=== PATIENT | male | born 1975 | race African-American/Black ===

== ENCOUNTER 2017-09-26 20:07 | Inpatient (IN) | payer OTHER ==
[~2017-09-26] VITALS: Ht 188 cm; Wt 130.7 kg
[2017-09-26] MEDS ORDERED: SODIUM CHLORIDE 0.9% 1000ML 1,000 ML IV STA ×2 (20:18→22:01)
[2017-09-26] MEDS ORDERED: KETOROLAC TROMETHAMINE 30 MG/ML VIAL IV STA (20:18)
[2017-09-26] MEDS: MoRPHine SULFATE 4 MG/ML 1 ML CARP\\VIAL IV PRN ×2 (20:36→22:19)
--- NOTE | 2017-09-26 20:57 | DIAGNOSTIC IMAGING REPORT ---
CHEST ONE VIEW PORTABLE CLINICAL HISTORY: Abdominal pain. COMPARISON STUDY: No previous studies for comparison. FINDINGS: Postoperative findings within the right shoulder are incidentally noted. Lung volumes are mildly diminished. There is probable scoliosis of the thoracolumbar spine. No pneumothorax or pleural effusion is noted. There is no evidence for pulmonary edema. There is borderline cardiomegaly. IMPRESSION: No acute cardiopulmonary findings. Electronically signed by: Logan Rocha M.D. 09/26/2017 8:56 PM Dictated Date/Time: 09/26/2017 8:55 PM
[2017-09-26 21:15] LABS: BASO % 0.1 %; BASO ABS # 0.01 K/uL (0-0.2); HEMATOCRIT 46.1 % (42-52); HEMOGLOBIN 16.6 g/dL (14.0-18.0); IG# 0.05 K/uL (0.00-0.02); LYMPH % 13.2 %; LYMPH ABS # 0.93 K/uL (1.2-3.4); MEAN CELL VOLUME 92.9 fL (80-100); MEAN CORPUSCULAR HEMOGLOBIN 33.5 pg (25-34); MEAN PLATELET VOLUME 11.9 fL (7.4-10.4); MONO % 6.9 %; MONO ABS # 0.49 K/uL (0.11-0.59); NEUT % 79.1 %; NEUT ABS # 5.59 K/uL (1.4-6.5); PLATELET COUNT 178 K/uL (130-400); RED CELL DISTRIBUTION WIDTH CV 13.6 % (11.5-14.5); RED CELL DISTRIBUTION WIDTH SD 45.7 fL (36.4-46.3); WHITE BLOOD COUNT 7.07 K/uL (4.8-10.8)
[2017-09-26 21:31] LABS: INR 0.9 (0.9-1.1); PTT PATIENT 26.9 SECONDS (21.0-31.0)
--- NOTE | 2017-09-26 22:10 | DIAGNOSTIC IMAGING REPORT ---
CT OF THE ABDOMEN AND PELVIS WITHOUT CONTRAST CLINICAL HISTORY: Abdominal pain, nausea and vomiting. COMPARISON STUDY: No previous studies for comparison. TECHNIQUE: Axial images of the abdomen and pelvis were obtained without IV contrast. Images were reviewed in the axial, sagittal, and coronal planes. A dose lowering technique was utilized adhering to the principles of ALARA. FINDINGS: Scoliosis of the thoracolumbar spine is noted. There is severe fatty infiltration of the liver. Unenhanced images of the spleen, adrenal glands and pancreas as well as the kidneys are normal. There is no hydronephrosis. No renal, ureteral or bladder calculi are present. There is no hydronephrosis. There is moderate distention of the bladder. There is colonic diverticulosis without evidence for acute diverticulitis. The appendix is normal. There is no peripancreatic or pericholecystic infiltration. There is mild distention of the bladder. Apparent rectal wall thickening is likely due to underdistention. There are no suspicious osseous lesions. IMPRESSION: 1. No acute process within the abdomen or pelvis on unenhanced exam. 2. No urinary calculi or hydronephrosis. 3. Colonic diverticulosis without evidence for acute diverticulitis. 4. Severe fatty infiltration of the liver. 5. Mild bladder distention. 6. Apparent rectal wall thickening which is likely due to underdistention. Electronically signed by: Logan Rocha M.D. 09/26/2017 10:09 PM Dictated Date/Time: 09/26/2017 10:02 PM
[2017-09-26] MEDS ORDERED: FAMOTIDINE 20MG/5ML IV PUSH IV STA (22:20)
[2017-09-26] MEDS ORDERED: ATOR10TA82 PO (22:46)
[2017-09-26] MEDS ORDERED: IBUP1CAP30 PO (22:46)
[2017-09-26] MEDS ORDERED: TPRSR/50 PO (22:46)
[2017-09-27] VITALS (18 sets, daily range): BP systolic 110–161; BP diastolic 71–100; PULSE 85–106; TEMP 36.7–37; O2SAT 96–100; BMI 34.5; BMI 34.6
[2017-09-27] MEDS ORDERED: PROMETHAZINE HCL INJ 12.5 MG in SODIUM CHLORIDE 0.9% 50ML 50 ML IV STA (00:12)
[2017-09-27] MEDS ORDERED: ONDANSETRON INJ 2 MG/ML 2 ML VIAL IV STA (00:12)
[2017-09-27] MEDS ORDERED: NovoLIN-R INSULIN PER UNIT CHARGE IV STA ×2 (01:02→01:49)
[2017-09-27] MEDS ORDERED: SODIUM CHLORIDE 0.9% 500ML 500 ML IV STA (01:02)
[2017-09-27] MEDS ORDERED: LABETALOL HCL IV 5 MG/ML 20ML IV STA (01:28)
[2017-09-27 01:34] LABS: ALBUMIN 4.6 gm/dl (3.4-5.0); ALKALINE PHOSPHATASE 127 U/L (45-117); ALT/SGPT 44 U/L (12-78); AST/SGOT 23 U/L (15-37); BLOOD UREA NITROGEN 9 mg/dl (7-18); CARBON DIOXIDE 5 mmol/L (21-32); CREATININE 1.81 mg/dl (0.60-1.40); LIPASE 541 U/L (73-393); POTASSIUM 6.2 mmol/L (3.5-5.1); SODIUM 132 mmol/L (136-145)
[2017-09-27 01:37] LABS: GLUCOSE 439 mg/dl (70-99)
[2017-09-27] MEDS ORDERED: LORAZEPAM 2 MG/ML 1 ML VIAL IV STA (01:45)
[2017-09-27] MEDS ORDERED: SODIUM CHLORIDE 0.9% 1000ML 1,000 ML IV STA (01:49)
[2017-09-27] MEDS ORDERED: NITROGLYCERIN 2% OINTMENT 30GM TUBE EXT ONE (01:55)
[2017-09-27] MEDS: SOD CHLOR 14.6% 2.5MEQ/ML 38.5 MEQ, SODIUM BICARBONATE 8.4% INJ 100 MEQ in STERILE WATE... IV SCH ×2 (02:12→09:42)
[2017-09-27] MEDS ORDERED: GLUCOSE 10 TABS/TUBE PO PRN (02:15)
[2017-09-27] MEDS ORDERED: DEXTROSE 50% 50 ML SYR IV PRN (02:15)
[2017-09-27] MEDS ORDERED: GLUCAGON FOR INJ 1 MG VIAL SQ PRN (02:15)
[2017-09-27] MEDS ORDERED: ALUMINUM/MAGNESIUM/SIMETH (MAALOX MAX) 30 ML UDC PO PRN (02:15)
[2017-09-27] MEDS ORDERED: MAGNESIUM HYDROXIDE SUSP 30 ML UDC PO PRN (02:15)
[2017-09-27] MEDS ORDERED: GLUCOSE 40% GEL 15 GM TUBE PO PRN (02:15)
[2017-09-27] MEDS ORDERED: ONDANSETRON 8MG OD TAB PO PRN (02:15)
--- NOTE | 2017-09-27 02:28 | History and Physical ---
History & Physical Date & Time of Service: Sep 27, 2017 at 02:27 Chief Complaint: abd pain Primary Care Physician: No Doctor, Assigned History of Present Illness Source: patient, hospital records The patient is a 42-year-old male who presents to the emergency department with intractable nausea and vomiting, lethargy and mild confusion. He denies any specific signs of illness, and is unsure of how he has gotten to his present state, other than a known history of severe reflux and he reports he has a sore throat now from vomiting. He denies any questionable food intake recently. Has not been able to take his medications for 3 days due to these symptoms. Past Medical/Surgical History Medical Problems: (1) Hyperglycemia due to type 2 diabetes mellitus (2) Hypertension (3) Intractable nausea and vomiting Family History FATHER- DM Social History Smoking Status: Never Smoker Smokeless Tobacco Use: No Alcohol Use: none Drug Use: none Immunizations History of Influenza Vaccine: Unknown History of Tetanus Vaccine?: Unknown History of Pneumococcal: Unknown History of Hepatitis B Vaccine: Unknown Allergies Coded Allergies: No Known Allergies (Unverified , 09/26/17) Home Medications Scheduled Atorvastatin (Lipitor), 10 MG PO DAILY Metoprolol Succinate (Metoprolol Succinate ER), 50 MG PO DAILY Scheduled PRN Ibuprofen-Diphenhydramine Hcl (Advil Pm), 1 CAP PO UD PRN for Sleep Review of Systems The patient denies chest pain, palpitations, shortness of breath, dyspnea on exertion, cough, lower extremity swelling, diarrhea , constipation, abdominal pain, pelvic pain, blood in urine or stool, dysuria, urinary frequency or urgency, memory loss, loss of consciousness, rash, abnormal bruising or bleeding, imbalance, focal weakness, numbness or tingling in arms or legs, back or neck pain, or night sweats. The review of systems is otherwise negative other than for that already noted above, and at least 10 systems have been reviewed. Physical Exam Vital Signs Date Time Temp Pulse Resp B/P (MAP) Pulse Ox O2 Delivery O2 Flow Rate FiO2 09/27/17 02:15 101 22 119/84 98 Room Air 09/27/17 02:05 101 28 130/92 98 Room Air 09/27/17 01:09 121 09/27/17 01:04 118 20 153/108 97 Room Air 09/26/17 23:15 114 18 152/103 98 09/26/17 21:38 116 18 159/101 100 Room Air 09/26/17 20:42 118 20 152/104 98 Room Air 09/26/17 20:11 37.1 122 22 174/112 98 Room Air The patient is awake, alert and oriented 3 after initial treatment in the ED, well developed and well nourished, normocephalic and atraumatic, lying in bed and in no acute distress. HEENT--PERRL, EOMI, mucous membranes and oropharynx dry. Neck--supple. No JVD. No bruits. Thyroid normal, trachea midline, no adenopathy. Heart--normal S1 and S2. No murmurs, rubs or gallops. Lungs--clear bilaterally, no respiratory distress, no accessory muscle use. Abdomen--normal bowel sounds and soft. Nontender. Nondistended, no hernias or masses, no organomegaly. Extremities--no cyanosis or clubbing. No edema. There are good distal pulses b/ l. Dermatologic--normal skin turgor, normal color, no abnormal lymph nodes, no rash. Neurologic--cranial nerves II through XII grossly intact. Rheumatologic--normal range of motion. Psychiatric--cooperative. Diagnostics Laboratory Results Results Past 24 Hours Test 09/26/17 20:58 09/27/17 00:43 09/27/17 01:00 09/27/17 01:30 Range/Units White Blood Count 7.07 4.8-10.8 K/uL Red Blood Count 4.96 4.7-6.1 M/uL Hemoglobin 16.6 14.0-18.0 g/dL Hematocrit 46.1 42-52 % Mean Corpuscular Volume 92.9 80-100 fL Mean Corpuscular Hemoglobin 33.5 25-34 pg Mean Corpuscular Hemoglobin Concent 36.0 32-36 g/dl Platelet Count 178 130-400 K/uL Mean Platelet Volume 11.9 7.4-10.4 fL Neutrophils (%) (Auto) 79.1 % Lymphocytes (%) (Auto) 13.2 % Monocytes (%) (Auto) 6.9 % Eosinophils (%) (Auto) 0.0 % Basophils (%) (Auto) 0.1 % Neutrophils # (Auto) 5.59 1.4-6.5 K/uL Lymphocytes # (Auto) 0.93 1.2-3.4 K/uL Monocytes # (Auto) 0.49 0.11-0.59 K/uL Eosinophils # (Auto) 0.00 0-0.5 K/uL Basophils # (Auto) 0.01 0-0.2 K/uL RDW Standard Deviation 45.7 36.4-46.3 fL RDW Coefficient of Variation 13.6 11.5-14.5 % Immature Granulocyte % (Auto) 0.7 % Immature Granulocyte # (Auto) 0.05 0.00-0.02 K/uL Prothrombin Time 9.9 9.0-12.0 SECONDS Prothromb Time International Ratio 0.9 0.9-1.1 Activated Partial Thromboplast Time 26.9 21.0-31.0 SECONDS Partial Thromboplastin Ratio 1.0 Sodium Level 132 136-145 mmol/L Potassium Level 6.2 3.5-5.1 mmol/L Chloride Level 102 98-107 mmol/L Carbon Dioxide Level 5 21-32 mmol/L Anion Gap 25.0 3-11 mmol/L Blood Urea Nitrogen 9 7-18 mg/dl Creatinine 1.81 0.60-1.40 mg/dl Est Creatinine Clear Calc Drug Dose 74.4 ml/min Estimated GFR () 52.3 Estimated GFR (Non- 45.1 BUN/Creatinine Ratio 5.0 10-20 Random Glucose 439 70-99 mg/dl Calcium Level 10.0 8.5-10.1 mg/dl Magnesium Level 2.4 1.8-2.4 mg/dl Total Bilirubin 0.5 0.2-1 mg/dl Aspartate Amino Transf (AST/SGOT) 23 15-37 U/L Alanine Aminotransferase (ALT/SGPT) 44 12-78 U/L Alkaline Phosphatase 127 45-117 U/L Troponin I < 0.015 0-0.045 ng/ml Total Protein 9.0 6.4-8.2 gm/dl Albumin 4.6 3.4-5.0 gm/dl Globulin 4.4 2.5-4.0 gm/dl Albumin/Globulin Ratio 1.0 0.9-2 Lipase 541 73-393 U/L Beta-Hydroxybutyric Acid 0.2-2.81 mg/dL Chemistry Specimen Hemolysis Bedside Glucose 432 70-99 mg/dl Urine Color YELLOW Urine Appearance CLEAR CLEAR Urine pH 5.0 4.5-7.5 Urine Specific [place] 1.027 1.000-1.030 Urine Protein 2+ NEG Urine Glucose (UA) 3+ NEG Urine Ketones 4+ NEG Urine Occult Blood 2+ NEG Urine Nitrite NEG NEG Urine Bilirubin NEG NEG Urine Urobilinogen NEG NEG Urine Leukocyte Esterase NEG NEG Urine WBC (Auto) 1-5 0-5 /hpf Urine RBC (Auto) 0-4 0-4 /hpf Urine Hyaline Casts (Auto) 5-10 0-5 /lpf Urine Epithelial Cells (Auto) 10-20 0-5 /lpf Urine Bacteria (Auto) NEG NEG Urine Opiates Screen POS NEG Urine Methadone, Qualitative NEG NEG Urine Barbiturates NEG NEG Urine Phencyclidine (PCP) Level NEG NEG Ur Amphetamine/Methamphetamine NEG NEG MDMA (Ecstasy) Screen NEG NEG Urine Benzodiazepines Screen NEG NEG Urine Cocaine Metabolite NEG NEG Urine Marijuana (THC) NEG NEG Test 09/27/17 01:48 09/27/17 02:20 Range/Units Bedside Glucose 420 70-99 mg/dl Diagnostic Radiology Patient Name: GUILLERMO PETERSON Unit Number: [id number] Dictated: 09/26/172054 Transcribed: 09/26/172054 BARBIE Printed Date/Time: [~ rep prt dt]/[~ rep prt tm] [~ rep ct labl] - [~ rep ct ivnm] [facility] [place] [address] Dictated: 09/26/172054 Transcribed: 09/26/172054 BARBIE Printed Date/Time: [~ rep prt dt]/[~ rep prt tm] [~ rep ct labl] - [~ rep ct ivnm] CHEST ONE VIEW PORTABLE CLINICAL HISTORY: Abdominal pain. COMPARISON STUDY: No previous studies for comparison. FINDINGS: Postoperative findings within the right shoulder are incidentally noted. Lung volumes are mildly diminished. There is probable scoliosis of the thoracolumbar spine. No pneumothorax or pleural effusion is noted. There is no evidence for pulmonary edema. There is borderline cardiomegaly. IMPRESSION: No acute cardiopulmonary findings. Electronically signed by: Logan Rocha M.D. 09/26/2017 8:56 PM Dictated Date/Time: 09/26/2017 8:55 PM The status of this report is Signed. Draft = Not yet reviewed or approved by Radiologist. Signed = Reviewed and approved by Radiologist. <AttendingPhy></AttendingPhy> <FamilyPhy>No Doctor, Assigned</FamilyPhy> < PrimaryPhy>No Doctor, Assigned</PrimaryPhy> <UnitNumber>[id number]</UnitNumber> <VisitNumber>[id number]</VisitNumber> <PatientName>GUILLERMO PETERSON</PatientName> < DateOfBirth>1975</DateOfBirth> <Location>[facility]</Location> <ServiceDate>08/14</ServiceDate> <MNE>ESINDI</MNE> <OrderingPhy>Naeem Lerma M.D.</ OrderingPhy> <OrderingPhyMNE>f rep ord dr cuevas</OrderingPhyMNE> <DictatingPhyMNE> f rep dict dr cuevas</DictatingPhyMNE> <CCListMNE>f rep ct mne</CCListMNE> < AdmittingPhyMNE>f pt admit dr cuevas</AdmittingPhyMNE> <AttendingPhyMNE>f pt attend dr cuevas</AttendingPhyMNE> <ConsultingPhyMNE>f pt consult dr cuevas</ConsultingPhyMNE> <FamilyPhyMNE>f pt fam dr cuevas</FamilyPhyMNE> <OtherPhyMNE>f pt other dr cuevas</OtherPhyMNE> < PrimaryPhyMNE>f pt prim care dr cuevas</PrimaryPhyMNE> <ReferringPhyMNE>f pt referring dr cuevas</ReferringPhyMNE> Patient Name: GUILLERMO PETERSON Unit Number: [id number] Dictated: 09/26/172201 Transcribed: 09/26/172201 BARBIE Printed Date/Time: [~ rep prt dt]/[~ rep prt tm] [~ rep ct labl] - [~ rep ct ivnm] [facility] [place] [address] Dictated: 09/26/172201 Transcribed: 09/26/172201 BARBIE Printed Date/Time: [~ rep prt dt]/[~ rep prt tm] [~ rep ct labl] - [~ rep ct ivnm] [~ rep ct add3]] CT OF THE ABDOMEN AND PELVIS WITHOUT CONTRAST CLINICAL HISTORY: Abdominal pain, nausea and vomiting. COMPARISON STUDY: No previous studies for comparison. TECHNIQUE: Axial images of the abdomen and pelvis were obtained without IV contrast. Images were reviewed in the axial, sagittal, and coronal planes. A dose lowering technique was utilized adhering to the principles of ALARA. FINDINGS: Scoliosis of the thoracolumbar spine is noted. There is severe fatty infiltration of the liver. Unenhanced images of the spleen, adrenal glands and pancreas as well as the kidneys are normal. There is no hydronephrosis. No renal, ureteral or bladder calculi are present. There is no hydronephrosis. There is moderate distention of the bladder. There is colonic diverticulosis without evidence for acute diverticulitis. The appendix is normal. There is no peripancreatic or pericholecystic infiltration. There is mild distention of the bladder. Apparent rectal wall thickening is likely due to underdistention. There are no suspicious osseous lesions. IMPRESSION: 1. No acute process within the abdomen or pelvis on unenhanced exam. 2. No urinary calculi or hydronephrosis. 3. Colonic diverticulosis without evidence for acute diverticulitis. 4. Severe fatty infiltration of the liver. 5. Mild bladder distention. 6. Apparent rectal wall thickening which is likely due to underdistention. Electronically signed by: Logan Rocha M.D. 09/26/2017 10:09 PM Dictated Date/Time: 09/26/2017 10:02 PM The status of this report is Signed. Draft = Not yet reviewed or approved by Radiologist. Signed = Reviewed and approved by Radiologist. <AttendingPhy></AttendingPhy> <FamilyPhy>No Doctor, Assigned</FamilyPhy> < PrimaryPhy>No Doctor, Assigned</PrimaryPhy> <UnitNumber>[id number]</UnitNumber> <VisitNumber>[id number]</VisitNumber> <PatientName>GUILLERMO PETERSON</PatientName> < DateOfBirth>1975</DateOfBirth> <Location>[facility]</Location> <ServiceDate>08/14</ServiceDate> <MNE>ESINDI</MNE> <OrderingPhy>Naeem Lerma M.D.</ OrderingPhy> <OrderingPhyMNE>f rep ord dr cuevas</OrderingPhyMNE> <DictatingPhyMNE> f rep dict dr cuevas</DictatingPhyMNE> <CCListMNE>f rep ct faith</CCListMNE> < AdmittingPhyMNE>f pt admit dr cuevas</AdmittingPhyMNE> <AttendingPhyMNE>f pt attend dr cuevas</AttendingPhyMNE> <ConsultingPhyMNE>f pt consult dr cuevas</ConsultingPhyMNE> <FamilyPhyMNE>f pt fam dr cuevas</FamilyPhyMNE> <OtherPhyMNE>f pt other dr cuevas</OtherPhyMNE> < PrimaryPhyMNE>f pt prim care dr cuevas</PrimaryPhyMNE> <ReferringPhyMNE>f pt referring dr cuevas</ReferringPhyMNE> EKG EKG shows normal sinus rhythm at 99 bpm, mildly prolonged QT, no acute ST-T changes. 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 His heart rate was very variable while he is in the emergency department ranging anywhere from the 90s to the 130s. For increased heart rate he is given labetalol 20 mg IV 1 by the ED staff. He received a total of 2-1/2 L of normal saline, which was then changed to a bicarbonate drip laboratories were able to be obtained and showed a bicarb of 5. The patient was initially intermittently disoriented, but by the time he left the emergency department was able to communicate reasonably well and reported feeling significantly improved except for abdominal cramping, for which he was given Levsin 0.4 mg sublingual. New onset diabetes mellitus-- Blood sugar was 439 upon admission. Hemoglobin A1c has been ordered. He was given regular insulin 10 mg IV 2, in efforts to improve blood sugar and treat hyperkalemia of 6.2. Patient was started on Lantus insulin 20 units subcu twice daily. Placed on Accu-Cheks before meals and at bedtime with NovoLog coverage for scale. Hyperlipidemia-- Continue Lipitor 10 mg p.o. daily Check a fasting lipid panel. Hypertension/hyperkalemia/acute kidney injury-- Continue metoprolol succinate 50 mg p.o. daily. Since he had not been able to take his medication for a few days, he was elevated, and was given labetalol 20 mg IV 1 by the ED. Lopressor 5 mg IV every 4 hours as needed systolic blood pressure above 160. Continue to hydrate with bicarb drip as noted above. Check basic metabolic panel at 4 hour intervals. Abdominal cramping-- CT abdomen and pelvis is negative. This may be due to the hyperglycemia itself and/or gastroparesis. Placed on Levsinex 0.4 mg sublingual every 4 hours as needed. Advanced Directives Existing Advance Directive: No Existing Living Will: No Existing Power of Material Manager: No Resuscitation Status VTE Prophylaxis Will order VTE Prophylaxis: Yes Social Service Consult None Apply Note Total Time: Critical Care 30 - 74 minutes
[2017-09-27] MEDS ORDERED: PROCHLORPERAZINE INJ 10 MG in SYRINGE 8 ML IV PRN (02:30)
[2017-09-27] MEDS: HYOSCYAMINE SULFATE 0.125 MG SL TAB SL PRN (02:52)
[2017-09-27] MEDS ORDERED: INSULIN GLARGINE SOLOSTAR 100 UNITS/ML 3 ML PEN SC STA (03:22)
[2017-09-27] MEDS ORDERED: INFLUENZA ADMINISTRATION CHARGE ONE (04:15)
[2017-09-27] MEDS ORDERED: INFLUENZA VIRUS QUAD VACCINE 0.5 ML SYR IM. ONE (04:15)
[2017-09-27] MEDS ORDERED: METOPROLOL TARTRATE 1 MG/ML VIAL IV ONE (05:23)
[2017-09-27] MEDS: ACETAMINOPHEN 325 MG TAB PO PRN (06:22)
[2017-09-27] MEDS ORDERED: INSULIN ASPART 100 UNITS/ML 3 ML PEN SC SCH (06:45)
[2017-09-27 07:20] LABS: HEMOGLOBIN A1C 12.5 % (4.5-5.6)
[2017-09-27] MEDS: HEPARIN SOD 5000 UNIT/0.5 ML CARP SQ SCH ×2 (07:52→20:18)
[2017-09-27] MEDS: METOPROLOL TARTRATE 1 MG/ML VIAL IV. SCH ×5 (07:55→23:33)
[2017-09-27] MEDS: NITROGLYCERIN 2% OINTMENT 30GM TUBE EXT SCH ×3 (08:12→20:20)
[2017-09-27] MEDS ORDERED: MODERATE STRESS LEVEL ONE (08:15)
[2017-09-27] MEDS ORDERED: DKA GOAL RANGE 150-250 mg/dl 1 EA ONE (08:15)
[2017-09-27] MEDS ORDERED: PHARMACY GLYCEMIC MGMT CONSULT PRN (08:15)
[2017-09-27] MEDS ORDERED: PERFLUTREN LIPID MICROSPHERE (DEFINITY) IV ONE (08:55)
[2017-09-27] MEDS ORDERED: INSULIN GLARGINE SOLOSTAR 100 UNITS/ML 3 ML PEN SC SCH (09:00)
[2017-09-27] MEDS ORDERED: INSULIN IV INFUSION PROTOCOL SCH (09:00)
[2017-09-27] MEDS: METOPROLOL SUCC 50MG EXT REL TAB PO SCH (09:06)
[2017-09-27] MEDS: ATORVASTATIN 10 MG TAB PO SCH (09:06)
[2017-09-27] MEDS: ASPIRIN 81 MG ECTAB PO SCH (09:06)
[2017-09-27] MEDS ORDERED: SODIUM CHLORIDE 0.45% 1000ML 1,000 ML IV SCH (10:30)
[2017-09-27] MEDS ORDERED: NovoLIN R BOLUS FROM BAG IV ONE (10:30)
[2017-09-27] MEDS: INSULIN REGULAR 250 UNITS in SODIUM CHLORIDE 0.9% 250ML 250 ML IV SCH (10:33)
[2017-09-27 10:42] LABS: BLOOD UREA NITROGEN 9 mg/dl (7-18); CALCIUM 8.8 mg/dl (8.5-10.1); CARBON DIOXIDE < 5 mmol/L (21-32); CHOLESTEROL 324 mg/dl (0-200); CKMB 2.6 ng/ml (0.5-3.6); CREATININE 1.93 mg/dl (0.60-1.40); GLUCOSE 416 mg/dl (70-99)
[2017-09-27 10:53] LABS: SODIUM 133 mmol/L (136-145)
[2017-09-27] MEDS ORDERED: PANTOprazole INJ 40 MG in SYRINGE 0 ML IV SCH (11:00)
[2017-09-27] MEDS: INSULIN ASPART 100 UNITS/ML 3 ML PEN SC SCH ×3 (11:57→20:11)
[2017-09-27 12:59] LABS: PHOSPHORUS 2.8 mg/dl (2.5-4.9)
[2017-09-27] MEDS ORDERED: CHLORDIAZEPOXIDE 25 MG CAP PO SCH (13:00)
[2017-09-27] MEDS ORDERED: LORAZEPAM 1 MG TAB PO PRN (13:00)
--- NOTE | 2017-09-27 13:25 | Progress Note ---
Subjective Date of Service: Sep 27, 2017. Subjective Pt evaluation today including: conversation w/ patient, conversation w/ family (), physical exam, lab review, review of inpatient medication list Pain: mild abdominal pain PO Intake: poor appetite Voiding: no voiding problems patient presented over night with complaints of 3 weeks of vague abdominal pain , nausea and vomiting prior to this he admitted to some polyuria and polydipsia last time he saw a physician was 10 months ago he has a family history of type II diabetes he says he is feeling a little better compared to time of admission reviewed labs, bicarb still 5, Cr is 1.9, VBG with pH of 7.26, CBC from yesterday was normal discussed with pharmacy, will start insulin drip, change fluids to half normal saline told patient about diagnosis of diabetes, unsure if this is type II or I Hb A1c is 12.5 vitals stable Review of Systems Constitutional: + weakness, + fatigue Abdomen: + pain, + nausea, + vomiting Male : + problem reported (recent h/o polyuria and polydipsia) All Other Systems: Reviewed and Negative Medications Current Inpatient Medications Medications (Trade) Dose Ordered Sig/Ike Route Start Time Stop Time Status Last Admin Dose Admin Heparin Sodium (Porcine) (Heparin Sq 5000 Unit/0.5ml) 5,000 unit Q12 SQ 09/27/17 09:00 10/27/17 08:59 09/27/17 07:52 5,000 UNIT Acetaminophen (Tylenol Tab) 650 mg Q4H PRN PO 09/27/17 02:15 10/27/17 02:14 09/27/17 06:22 650 MG Al Hydrox/Mg Hydrox/Simethicone (Maalox Max Susp) 15 ml Q4H PRN PO 09/27/17 02:15 10/27/17 02:14 09/27/17 06:21 15 ML Magnesium Hydroxide (Milk Of Magnesia Susp) 30 ml Q12H PRN PO 09/27/17 02:15 10/27/17 02:14 Nitroglycerin (Nitroglycerin 2% Oint) 1 inch Q6H EXT 09/27/17 08:00 10/27/17 07:59 09/27/17 08:12 1 INCH Aspirin (Ecotrin Tab) 81 mg QAM PO 09/27/17 09:00 10/27/17 08:59 09/27/17 09:06 81 MG Atorvastatin Calcium (Lipitor Tab) 10 mg DAILY PO 09/27/17 09:00 10/27/17 08:59 09/27/17 09:06 10 MG Metoprolol Succinate (Toprol Xl Tab) 50 mg QAM PO 09/27/17 09:00 10/27/17 08:59 09/27/17 09:06 50 MG Ondansetron HCl (Zofran Odt) 8 mg Q6H PRN PO 09/27/17 02:15 10/27/17 02:14 09/27/17 08:17 8 MG Insulin Aspart (novoLOG ASPART) SLIDING SCALE If C... ACHS SC 09/27/17 06:45 10/27/17 06:59 Future Hold 09/27/17 07:52 9 UNITS Glucose (Glucose 40% Gel) 15-30 GRAMS 15 GRAMS... UD PRN PO 09/27/17 02:15 10/27/17 02:14 Glucose (Glucose Chew Tab) 4-8 Tablets 4 Tabl... UD PRN PO 09/27/17 02:15 10/27/17 02:14 Dextrose (Dextrose 50% 50ML Syringe) 25-50ML OF 50% DW IV FOR... UD PRN IV 09/27/17 02:15 10/27/17 02:14 Glucagon (Glucagon Inj) 1 mg UD PRN SQ 09/27/17 02:15 10/27/17 02:14 Pantoprazole Sodium 40 mg/ Syringe 10 ml @ 5 mls/min DAILY@11 IV 09/27/17 11:00 09/30/17 11:01 09/27/17 11:46 5 MLS/MIN Prochlorperazine Edisylate 10 mg/ Syringe 10 ml @ 5 mls/min Q6H PRN IV 09/27/17 02:30 10/27/17 02:29 Hyoscyamine Sulfate (Levsin Tab) 0.125 mg Q4H PRN SL 09/27/17 02:45 10/27/17 02:44 09/27/17 02:52 0.125 MG Metoprolol Tartrate (Lopressor Iv) 5 mg Q4 IV. 09/27/17 08:00 5/3/18 07:59 09/27/17 11:42 5 MG Insulin Glargine (Lantus Solostar Pen) 20 units QAM AK 09/28/17 09:00 10/27/17 08:59 Future Hold Insulin Aspart (novoLOG ASPART) SLIDING SCALE PCHS AK 09/27/17 12:00 10/27/17 11:59 Insulin Human Regular (Insulin IV Infusion Protocol) 1 ea Q15M N/A 09/27/17 09:00 10/27/17 08:59 Miscellaneous Information (Consult Glycemic Management Pharmacy) 1 ea UD PRN N/A 09/27/17 08:15 10/27/17 08:14 Insulin Human Regular 250 units/ Sodium Chloride 252.5 ml @ 0 mls/hr Q24H IV 09/27/17 10:30 10/27/17 10:29 09/27/17 10:33 3.1 MLS/HR Sodium Chloride 1,000 ml @ 150 mls/hr Q6H40M IV 09/27/17 10:30 10/27/17 10:29 Objective Vital Signs Date Time Temp Pulse Resp B/P (MAP) Pulse Ox O2 Delivery O2 Flow Rate FiO2 09/27/17 12:09 36.7 18 120/85 (97) 99 Room Air 09/27/17 12:05 99 Room Air 09/27/17 11:42 91 125/80 09/27/17 11:41 91 18 125/80 (95) 99 09/27/17 10:00 96 21 09/27/17 09:01 95 19 149/90 (109) 98 Room Air 09/27/17 09:00 96 21 99 09/27/17 08:31 98 26 161/100 (120) 99 09/27/17 08:15 99 Room Air 09/27/17 08:01 36.7 98 20 146/95 (112) 100 Room Air 09/27/17 07:55 102 146/90 09/27/17 07:31 101 29 146/90 (108) 98 09/27/17 07:01 105 29 144/93 (110) 97 09/27/17 07:00 104 20 98 09/27/17 05:41 107 147/69 09/27/17 04:00 36.7 106 22 150/96 (114) 98 Room Air 09/27/17 04:00 96 Room Air 09/27/17 03:00 36.8 104 20 148/94 97 Room Air 09/27/17 02:48 104 20 122/88 98 09/27/17 02:42 79 20 138/88 97 Room Air 09/27/17 02:31 104 20 105/86 99 Room Air 09/27/17 02:15 101 22 119/84 98 Room Air 09/27/17 02:05 101 28 130/92 98 Room Air 09/27/17 01:09 121 09/27/17 01:04 118 20 153/108 97 Room Air 09/26/17 23:15 114 18 152/103 98 09/26/17 21:38 116 18 159/101 100 Room Air 09/26/17 20:42 118 20 152/104 98 Room Air 09/26/17 20:11 37.1 122 22 174/112 98 Room Air Physical Exam General Appearance: no apparent distress, + obese Eyes: normal inspection, EOMI, sclerae normal ENT: normal ENT inspection, hearing grossly normal, pharynx normal, + pertinent finding (acetone breath) Neck: supple, no adenopathy, no JVD, trachea midline Respiratory/Chest: chest non-tender, lungs clear, normal breath sounds, no respiratory distress, no accessory muscle use Cardiovascular: regular rate, rhythm, no edema, no gallop, no JVD, no murmur Abdomen: normal bowel sounds, non tender, soft, no organomegaly Extremities: normal range of motion, non-tender, normal inspection, no pedal edema, no calf tenderness, pelvis stable Neurologic/Psychiatric: recycle coordinator II-XII nml as tested, no motor/sensory deficits, alert, normal mood/affect, oriented x 3 Skin: normal color, warm/dry, no rash Laboratory Results Last 24 Hours Test 09/26/17 20:58 09/27/17 00:43 09/27/17 01:00 09/27/17 01:30 White Blood Count 7.07 K/uL Red Blood Count 4.96 M/uL Hemoglobin 16.6 g/dL Hematocrit 46.1 % Mean Corpuscular Volume 92.9 fL Mean Corpuscular Hemoglobin 33.5 pg Mean Corpuscular Hemoglobin Concent 36.0 g/dl Platelet Count 178 K/uL Mean Platelet Volume 11.9 fL Neutrophils (%) (Auto) 79.1 % Lymphocytes (%) (Auto) 13.2 % Monocytes (%) (Auto) 6.9 % Eosinophils (%) (Auto) 0.0 % Basophils (%) (Auto) 0.1 % Neutrophils # (Auto) 5.59 K/uL Lymphocytes # (Auto) 0.93 K/uL Monocytes # (Auto) 0.49 K/uL Eosinophils # (Auto) 0.00 K/uL Basophils # (Auto) 0.01 K/uL RDW Standard Deviation 45.7 fL RDW Coefficient of Variation 13.6 % Immature Granulocyte % (Auto) 0.7 % Immature Granulocyte # (Auto) 0.05 K/uL Prothrombin Time 9.9 SECONDS Prothromb Time International Ratio 0.9 Activated Partial Thromboplast Time 26.9 SECONDS Partial Thromboplastin Ratio 1.0 Estimated Average Glucose 312 mg/dl Hemoglobin A1c 12.5 % Sodium Level 132 mmol/L Potassium Level 6.2 mmol/L Chloride Level 102 mmol/L Carbon Dioxide Level 5 mmol/L Anion Gap 25.0 mmol/L Blood Urea Nitrogen 9 mg/dl Creatinine 1.81 mg/dl Est Creatinine Clear Calc Drug Dose 74.4 ml/min Estimated GFR () 52.3 Estimated GFR (Non- 45.1 BUN/Creatinine Ratio 5.0 Random Glucose 439 mg/dl Calcium Level 10.0 mg/dl Magnesium Level 2.4 mg/dl Total Bilirubin 0.5 mg/dl Aspartate Amino Transf (AST/SGOT) 23 U/L Alanine Aminotransferase (ALT/SGPT) 44 U/L Alkaline Phosphatase 127 U/L Troponin I < 0.015 ng/ml Total Protein 9.0 gm/dl Albumin 4.6 gm/dl Globulin 4.4 gm/dl Albumin/Globulin Ratio 1.0 Lipase 541 U/L Beta-Hydroxybutyric Acid mg/dL Chemistry Specimen Hemolysis Bedside Glucose 432 mg/dl Urine Color YELLOW Urine Appearance CLEAR Urine pH 5.0 Urine Specific [place] 1.027 Urine Protein 2+ Urine Glucose (UA) 3+ Urine Ketones 4+ Urine Occult Blood 2+ Urine Nitrite NEG Urine Bilirubin NEG Urine Urobilinogen NEG Urine Leukocyte Esterase NEG Urine WBC (Auto) 1-5 /hpf Urine RBC (Auto) 0-4 /hpf Urine Hyaline Casts (Auto) 5-10 /lpf Urine Epithelial Cells (Auto) 10-20 /lpf Urine Bacteria (Auto) NEG Urine Opiates Screen POS Urine Methadone, Qualitative NEG Urine Barbiturates NEG Urine Phencyclidine (PCP) Level NEG Ur Amphetamine/Methamphetamine NEG MDMA (Ecstasy) Screen NEG Urine Benzodiazepines Screen NEG Urine Cocaine Metabolite NEG Urine Marijuana (THC) NEG Test 09/27/17 01:48 09/27/17 05:33 09/27/17 09:52 09/27/17 12:12 Bedside Glucose 420 mg/dl 376 mg/dl Sodium Level 133 mmol/L Potassium Level mmol/L Chloride Level 102 mmol/L Carbon Dioxide Level < 5 mmol/L Anion Gap 28.0 mmol/L Blood Urea Nitrogen 9 mg/dl Creatinine 1.93 mg/dl Est Creatinine Clear Calc Drug Dose 69.2 ml/min Estimated GFR () 48.4 Estimated GFR (Non- 41.7 BUN/Creatinine Ratio 4.9 Random Glucose 416 mg/dl Calcium Level 8.8 mg/dl Total Creatine Kinase U/L Creatine Kinase MB 2.6 ng/ml Creatine Kinase MB Ratio Troponin I < 0.015 ng/ml Triglycerides Level 1228 mg/dl Cholesterol Level 324 mg/dl HDL Cholesterol 39 mg/dl LDL Cholesterol, Calculated mg/dl VLDL Cholesterol, Calculated mg/dl Cholesterol/HDL Ratio 8.3 Beta-Hydroxybutyric Acid mg/dL Venous Blood pH 7.26 Phosphorus Level 2.8 mg/dl Magnesium Level mg/dl Test 09/27/17 12:16 Assessment and Plan 42 yo male with new onset DM, presenting with DKA - DKA: sugars in 400's, HCO3 low at 5 with anion gap of 28 will start insulin infusion with pharmacy managing will need to transition to basal and bolus once sugars controlled and gap closed follow BMP and Mag/phos q4 keep in ICU today continue 1/2 NSS, will add D5 once sugars < 250 K down to 3.8 from 6, due to insulin infusion will give 20mEq PO BID, 20mEq IV, change fluids to LR - Hypertriglyceridemia due to elevated sugars, will repeat once sugars controlled - RAMIREZ: Cr up to 1.9, likely prerenal azotemia follow UO, follow Cr, electrolytes stable - Alcohol abuse: drinks several bottles of vodka a week last drink was 3 days ago, no tremors or signs of withdrawal will place on Librium protocol Ativan PRN - DVT prophylaxis: heparin SC
[2017-09-27] MEDS: THIAMINE HCL 100 MG TAB PO SCH (13:47)
[2017-09-27] MEDS: CHLORDIAZEPOXIDE 50MG 1ST DOSE PO SCH ×2 (13:50→20:17)
--- NOTE | 2017-09-27 14:15 | ECHOCARDIOGRAM REPORT ---
*NOTICE TO RECEIVING [employer] This information is strictly Confidential and protected under [place] law. [place] law prohibits you from making any further disclosure of this information unless further disclosure is expressly permitted by the written consent of the person to whom it pertains or is authorized by law. A general authorization for the release of medical or other information is not sufficient for this purpose. Hospital accepts no responsibility if the information is made available to any other person, INCLUDING THE PATIENT. Interpretation Summary * Name: GUILLERMO PETERSON Study Date: 09/27/2017 08:35 AM BP: 146/90 mmHg * Patient Location: [facility] HR: 102 * : 1975 (M/d/yyyy) Gender: Male Height: 74 in * Age: 42 yrs Ethnicity: AA Weight: 273 lb * Ordering Physician: Landon Richardson * Referring Physician: Self, Referred * Performed By: Sravani Davis RDCS * * Reason For Study: Abnormal EKG, ST elevation in V2 * BSA: 2.5 m2 * -- Conclusions -- * Left ventricular systolic function is normal. * No regional wall motion abnormalities noted. * Ejection Fraction = 60-65%. * There is borderline concentric left ventricular hypertrophy. * Grade I diastolic dysfunction, (abnormal relaxation pattern). * There is mild mitral regurgitation. Procedure Details * A complete two-dimensional transthoracic echocardiogram was performed (2D, M-mode, Doppler and color flow Doppler). * A contrast injection of Definity was performed to improve assessment of LV function. * Contrast was injected into an intravenous site in the right arm. * One vial of Definity ultrasound contrast was diluted in normal saline to a total volume of 10 ml. A total of '2' ml of solution was administered during imaging. * Lot # [id number] of Definity utilized for procedure. * Expiration date OCT 13. * The attending nurse who injected the contrast agent was Heriberto Bose RN. Left Ventricle * The left ventricle is normal in size. * There is borderline concentric left ventricular hypertrophy. * Ejection Fraction = 60-65%. * Left ventricular systolic function is normal. * No regional wall motion abnormalities noted. Right Ventricle * The right ventricle is normal size. * The right ventricular systolic function is normal as assessed by tricuspid annular plane systolic excursion (TAPSE) (normal >1.5 cm). Atria * The left atrium is mildly dilated. * Right atrium not well visualized. * No ASD detected; PFO is not assessed. Mitral Valve * The mitral valve anatomy is normal. * There is no mitral valve stenosis. * There is mild mitral regurgitation. Tricuspid Valve * The tricuspid valve anatomy is normal. * There is no tricuspid stenosis. * Significant tricuspid regurgitation is absent. Aortic Valve * The aortic valve is normal in structure and function. * No hemodynamically significant valvular aortic stenosis. * No aortic regurgitation is present. Pulmonic Valve * The pulmonary valve is not well seen, but the Doppler examination is normal without significant regurgitation or stenosis. Great Vessels * Borderline aortic root dilatation. * The pulmonary is not well visualized. Pericardium/Pleural * There is no pericardial effusion. Great Vessels * Normal inferior vena cava size and collapsability with sniff indicates a normal right atrial pressure of 3 mmHg Left Ventricular Diastolic Function * Grade I diastolic dysfunction, (abnormal relaxation pattern). MMode 2D Measurements and Calculations IVSd 0.98 cm LVIDd 4.6 cm LVIDs 3.2 cm LVPWd 0.95 cm IVS/LVPW 1.0 FS 30.9 % EDV(Teich) 97.8 ml ESV(Teich) 40.5 ml EF(Teich) 58.5 % EDV(cubed) 97.9 ml ESV(cubed) 32.3 ml EF(cubed) 67.0 % LV mass(C)d 151.7 grams LV mass(C)dI 61.2 grams/m\S\2 SV(Teich) 57.2 ml SI(Teich) 23.1 ml/m\S\2 SV(cubed) 65.5 ml SI(cubed) 26.4 ml/m\S\2 Ao root diam 3.4 cm Ao root area 9.1 cm\S\2 ACS 2.4 cm LA dimension 3.3 cm asc Aorta Diam 3.6 cm LA/Ao 0.98 LVOT diam 2.2 cm LVOT area 3.7 cm\S\2 LVAd ap4 19.7 cm\S\2 LVLd ap4 6.4 cm EDV(MOD-sp4) 52.5 ml EDV(sp4-el) 51.4 ml LVAs ap4 11.9 cm\S\2 LVLs ap4 5.7 cm ESV(MOD-sp4) 22.2 ml ESV(sp4-el) 21.2 ml EF(MOD-sp4) 57.7 % EF(sp4-el) 58.7 % LVAd ap2 20.3 cm\S\2 LVLd ap2 6.1 cm EDV(MOD-sp2) 54.3 ml EDV(sp2-el) 57.8 ml LVAs ap2 12.6 cm\S\2 LVLs ap2 6.1 cm ESV(MOD-sp2) 22.6 ml ESV(sp2-el) 22.4 ml EF(MOD-sp2) 58.3 % EF(sp2-el) 61.3 % LVLd %diff -5.92 % EDV(MOD-bp) 53.6 ml LVLs %diff 5.9 % ESV(MOD-bp) 23.1 ml EF(MOD-bp) 56.9 % SV(MOD-sp4) 30.3 ml SI(MOD-sp4) 12.2 ml/m\S\2 SV(MOD-sp2) 31.6 ml SI(MOD-sp2) 12.8 ml/m\S\2 SV(MOD-bp) 30.5 ml SI(MOD-bp) 12.3 ml/m\S\2 SV(sp4-el) 30.2 ml SI(sp4-el) 12.2 ml/m\S\2 SV(sp2-el) 35.5 ml SI(sp2-el) 14.3 ml/m\S\2 Doppler Measurements and Calculations MV E max daija 54.8 cm/sec MV A max daija 71.3 cm/sec MV E/A 0.77 MV dec time 0.17 sec Ao V2 max 111.3 cm/sec Ao max PG 5.0 mmHg Ao max PG (full) 1.4 mmHg DYLAN(V,A) 3.1 cm\S\2 DYLAN(V,D) 3.1 cm\S\2 LV V1 max PG 3.5 mmHg LV V1 max 94.1 cm/sec PA V2 max 99.1 cm/sec PA max PG 3.9 mmHg PA acc slope 704.7 cm/sec\S\2 PA acc time 0.09 sec PI end-d daija 122.2 cm/sec PA pr(Accel) 37.8 mmHg
[2017-09-27 14:22] LABS: POTASSIUM 3.8 mmol/L (3.5-5.1)
--- NOTE | 2017-09-27 14:34 | EMERGENCY ROOM VISIT NOTE ---
History Report prepared by Louisa: Golden Bonner Under the Supervision of: Dr. Naeem Lerma M.D. First contact with patient: 20:12 Chief Complaint: ABDOMINAL PAIN Stated Complaint: abd pain History of Present Illness The patient is a 42 year old male who presents to the Emergency Room with complaints of constant abdominal pain beginning two days ago. The patient states that his abdominal pain began two days ago and is located in the center of his abdomen. He notes that he also has a headache, mild chest pain, has been vomiting, and has not been able to eat since his symptoms began. He denies any diarrhea and fever. He reports that he has a history of hypertension but does not have a history of any abdominal surgeries. He rates his pain as an 8/10. Per nurse, the patient was given 4 mg of Zofran PO at [facility] and 4 mg of Zofran IV in the parking lot. The patient presents by EMS. He admits he has not been able to take his normal medications for the last few days. Source of History: patient, nursing staff Onset: two days ago Position: abdomen Symptom Intensity: 8/10 Timing: constant Associated Symptoms: + headache, + chest pain (mild), + vomiting, No fevers , No diarrhea Note: The patient states that he has not been able to eat since his symptoms began. Review of Systems See HPI for pertinent positives & negatives. A total of 10 systems reviewed and were otherwise negative. Past Medical & Surgical Medical Problems: (1) Hyperglycemia due to type 2 diabetes mellitus (2) Hypertension (3) Intractable nausea and vomiting Family History No pertinent family history stated. Social History Marital Status: Housing Status: lives with family Occupation Status: employed Current/Historical Medications Scheduled Atorvastatin (Lipitor), 10 MG PO DAILY Metoprolol Succinate (Metoprolol Succinate ER), 50 MG PO DAILY Scheduled PRN Ibuprofen-Diphenhydramine Hcl (Advil Pm), 1 CAP PO UD PRN for Sleep Allergies Coded Allergies: No Known Allergies (Unverified , 09/26/17) Physical Exam Vital Signs Date Time Temp Pulse Resp B/P (MAP) Pulse Ox O2 Delivery O2 Flow Rate FiO2 09/27/17 02:15 101 22 119/84 98 Room Air 09/27/17 02:05 101 28 130/92 98 Room Air 09/27/17 01:09 121 09/27/17 01:04 118 20 153/108 97 Room Air 09/26/17 23:15 114 18 152/103 98 09/26/17 21:38 116 18 159/101 100 Room Air 09/26/17 20:42 118 20 152/104 98 Room Air 09/26/17 20:11 37.1 122 22 174/112 98 Room Air Physical Exam GENERAL: Patient is in mild distress, actively vomiting. HEENT: No acute trauma, normocephalic atraumatic, mucous membranes dry, no nasal congestion, no scleral icterus. NECK: No stridor, no adenopathy, no meningismus, trachea is midline. LUNGS: Clear to auscultation bilaterally, no wheeze, no rhonchi, breath sounds equal. HEART: Tachycardic with a subtle systolic murmur, regular rhythm. ABDOMEN: Soft, diffusely tender but mostly tender near the epigastrium, bowel sounds positive, no hernias, no peritonitis. EXTREMITIES: No cyanosis or edema, full range of motion of all the joints without pain or difficulty, no signs for acute trauma. NEUROLOGIC: Oriented x 3, no acute motor or sensory deficits, no focal weakness. SKIN: No rash, no jaundice, mild diaphoresis. Medical Decision & Procedures ER Provider Diagnostic Interpretation: Radiology results as stated below per my review and radiologist interpretation: CHEST ONE VIEW PORTABLE FINDINGS: Postoperative findings within the right shoulder are incidentally noted. Lung volumes are mildly diminished. There is probable scoliosis of the thoracolumbar spine. No pneumothorax or pleural effusion is noted. There is no evidence for pulmonary edema. There is borderline cardiomegaly. IMPRESSION: No acute cardiopulmonary findings. CT OF THE ABDOMEN AND PELVIS WITHOUT CONTRAST FINDINGS: Scoliosis of the thoracolumbar spine is noted. There is severe fatty infiltration of the liver. Unenhanced images of the spleen, adrenal glands and pancreas as well as the kidneys are normal. There is no hydronephrosis. No renal, ureteral or bladder calculi are present. There is no hydronephrosis. There is moderate distention of the bladder. There is colonic diverticulosis without evidence for acute diverticulitis. The appendix is normal. There is no peripancreatic or pericholecystic infiltration. There is mild distention of the bladder. Apparent rectal wall thickening is likely due to underdistention. There are no suspicious osseous lesions. IMPRESSION: 1. No acute process within the abdomen or pelvis on unenhanced exam. 2. No urinary calculi or hydronephrosis. 3. Colonic diverticulosis without evidence for acute diverticulitis. 4. Severe fatty infiltration of the liver. 5. Mild bladder distention. 6. Apparent rectal wall thickening which is likely due to underdistention. Electronically signed by: Logan Rocha M.D. 09/26/2017 10:09 PM Electronically signed by: Logan Rocha M.D. 09/26/2017 8:56 PM Laboratory Results 09/26/17 20:58 Red Blood Count 4.96, Mean Corpuscular Volume 92.9, Mean Corpuscular Hemoglobin 33.5, Mean Corpuscular Hemoglobin Concent 36.0, Mean Platelet Volume 11.9, Neutrophils (%) (Auto) 79.1, Lymphocytes (%) (Auto) 13.2, Monocytes (%) (Auto) 6.9, Eosinophils (%) (Auto) 0.0, Basophils (%) (Auto) 0.1, Neutrophils # (Auto) 5.59, Lymphocytes # (Auto) 0.93, Monocytes # (Auto) 0.49, Eosinophils # (Auto) 0.00, Basophils # (Auto) 0.01 Test 09/26/17 20:58 09/27/17 00:43 09/27/17 01:30 White Blood Count 7.07 K/uL (4.8-10.8) Red Blood Count 4.96 M/uL (4.7-6.1) Hemoglobin 16.6 g/dL (14.0-18.0) Hematocrit 46.1 % (42-52) Mean Corpuscular Volume 92.9 fL (80-100) Mean Corpuscular Hemoglobin 33.5 pg (25-34) Mean Corpuscular Hemoglobin Concent 36.0 g/dl (32-36) Platelet Count 178 K/uL (130-400) Mean Platelet Volume 11.9 fL (7.4-10.4) Neutrophils (%) (Auto) 79.1 % Lymphocytes (%) (Auto) 13.2 % Monocytes (%) (Auto) 6.9 % Eosinophils (%) (Auto) 0.0 % Basophils (%) (Auto) 0.1 % Neutrophils # (Auto) 5.59 K/uL (1.4-6.5) Lymphocytes # (Auto) 0.93 K/uL (1.2-3.4) Monocytes # (Auto) 0.49 K/uL (0.11-0.59) Eosinophils # (Auto) 0.00 K/uL (0-0.5) Basophils # (Auto) 0.01 K/uL (0-0.2) RDW Standard Deviation 45.7 fL (36.4-46.3) RDW Coefficient of Variation 13.6 % (11.5-14.5) Immature Granulocyte % (Auto) 0.7 % Immature Granulocyte # (Auto) 0.05 K/uL (0.00-0.02) Prothrombin Time 9.9 SECONDS (9.0-12.0) Prothromb Time International Ratio 0.9 (0.9-1.1) Activated Partial Thromboplast Time 26.9 SECONDS (21.0-31.0) Partial Thromboplastin Ratio 1.0 Estimated Average Glucose 312 mg/dl Hemoglobin A1c 12.5 % (4.5-5.6) Total Bilirubin 0.5 mg/dl (0.2-1) Aspartate Amino Transf (AST/SGOT) 23 U/L (15-37) Alanine Aminotransferase (ALT/SGPT) 44 U/L (12-78) Alkaline Phosphatase 127 U/L (45-117) Total Protein 9.0 gm/dl (6.4-8.2) Albumin 4.6 gm/dl (3.4-5.0) Globulin 4.4 gm/dl (2.5-4.0) Albumin/Globulin Ratio 1.0 (0.9-2) Lipase 541 U/L (73-393) Chemistry Specimen Hemolysis Urine Color YELLOW Urine Appearance CLEAR (CLEAR) Urine pH 5.0 (4.5-7.5) Urine Specific [place] 1.027 (1.000-1.030) Urine Protein 2+ (NEG) Urine Glucose (UA) 3+ (NEG) Urine Ketones 4+ (NEG) Urine Occult Blood 2+ (NEG) Urine Nitrite NEG (NEG) Urine Bilirubin NEG (NEG) Urine Urobilinogen NEG (NEG) Urine Leukocyte Esterase NEG (NEG) Urine WBC (Auto) 1-5 /hpf (0-5) Urine RBC (Auto) 0-4 /hpf (0-4) Urine Hyaline Casts (Auto) 5-10 /lpf (0-5) Urine Epithelial Cells (Auto) 10-20 /lpf (0-5) Urine Bacteria (Auto) NEG (NEG) Urine Opiates Screen POS (NEG) Urine Methadone, Qualitative NEG (NEG) Urine Barbiturates NEG (NEG) Urine Phencyclidine (PCP) Level NEG (NEG) Ur Amphetamine/Methamphetamine NEG (NEG) MDMA (Ecstasy) Screen NEG (NEG) Urine Benzodiazepines Screen NEG (NEG) Urine Cocaine Metabolite NEG (NEG) Urine Marijuana (THC) NEG (NEG) Laboratory results reviewed by me. Medications Administered Medications (Trade) Dose Ordered Sig/Ike Route Start Time Stop Time Status Last Admin Dose Admin Sodium Chloride 1,000 ml @ 999 mls/hr Q1H1M STAT IV 09/26/17 20:18 09/26/17 21:18 DC 09/26/17 20:36 999 MLS/HR Morphine Sulfate (MoRPHine SULFATE INJ) 4 mg Q30M PRN IV 09/26/17 20:30 09/27/17 03:24 DC 09/26/17 22:19 4 MG Ketorolac Tromethamine (Toradol Inj) 30 mg NOW STAT IV 09/26/17 20:18 09/26/17 20:21 DC 09/26/17 20:36 30 MG Sodium Chloride 1,000 ml @ 999 mls/hr Q1H1M STAT IV 09/26/17 22:01 09/26/17 23:01 DC 09/26/17 22:19 999 MLS/HR Famotidine (Pepcid 20mg Iv Push) 20 mg ONE STAT IV 09/26/17 22:20 09/26/17 22:21 DC 09/26/17 22:39 20 MG Ondansetron HCl (Zofran Inj) 4 mg NOW STAT IV 09/27/17 00:12 09/27/17 00:13 DC 09/27/17 00:18 4 MG Promethazine HCl 12.5 mg/Sodium Chloride 50.5 ml @ 204 mls/hr NOW STAT IV 09/27/17 00:12 09/27/17 00:26 DC 09/27/17 00:54 204 MLS/HR Sodium Chloride 500 ml @ 999 mls/hr Q31M STAT IV 09/27/17 01:02 09/27/17 01:32 DC 09/27/17 01:07 999 MLS/HR Insulin Human Regular (novoLIN-R U-100 PER UNIT) 10 units NOW STAT IV 09/27/17 01:02 09/27/17 01:03 DC 09/27/17 01:09 10 UNITS Labetalol HCl (Normodyne IV) 20 mg NOW STAT IV 09/27/17 01:28 09/27/17 01:29 DC 09/27/17 01:36 20 MG Lorazepam (Ativan Inj) 0.5 mg NOW STAT IV 09/27/17 01:45 09/27/17 01:46 DC 09/27/17 02:01 0.5 MG Sodium Chloride 1,000 ml @ 999 mls/hr Q1H1M STAT IV 09/27/17 01:49 09/27/17 02:49 DC 09/27/17 01:54 999 MLS/HR Insulin Human Regular (novoLIN-R U-100 PER UNIT) 10 units NOW STAT IV 09/27/17 01:49 09/27/17 01:50 DC 09/27/17 01:55 10 UNITS Nitroglycerin (Nitroglycerin 2% Oint) 18 inch STK-MED ONCE EXT 09/27/17 01:55 09/27/17 01:56 DC 09/27/17 01:57 18 INCH Sodium Chloride 38.5 meq/Sodium Bicarbonate 100 meq/Sterile Water 1,100 ml @ 150 mls/hr Q7H20M IV 09/27/17 02:00 09/27/17 10:21 DC 09/27/17 09:42 150 MLS/HR Acetaminophen (Tylenol Tab) 650 mg Q4H PRN PO 09/27/17 02:15 10/27/17 02:14 09/27/17 06:22 650 MG Al Hydrox/Mg Hydrox/Simethicone (Maalox Max Susp) 15 ml Q4H PRN PO 09/27/17 02:15 10/27/17 02:14 09/27/17 06:21 15 ML Ondansetron HCl (Zofran Odt) 8 mg Q6H PRN PO 09/27/17 02:15 10/27/17 02:14 09/27/17 08:17 8 MG ECG Per My Interpretation Indication: vomiting Rate (beats per minute): 123 Rhythm: sinus tachycardia Findings: no ectopy, other (No ST elevation, no PVCs) Change: EKG #2: Normal sinus, 99, very mild ST elevation in lead V2 which is new compared to EKG #1, no PVCs. ED Course 2012: The patient was evaluated in room C3. A complete history and physical exam was performed. 2018: Toradol Inj 30mg IV, Sodium Chloride 1000 ml @ 999 mls/hr IV 2200: Sodium Chloride 1000 ml @ 999 mls/hr IV 2220: Famotidine 20mg IV 2253: I reevaluated and updated the patient. He states that he has not taken his blood pressure medication in the last three days due to his vomiting. I told him to take his own blood pressure medication now. 0012: Promethazine HCl 12.5 mg/Sodium Chloride 50.5 ml @ 204 mls/hr IV, Zofran Inj 4mg IV 0014: I rechecked the patient. He is vomiting again. 0100: I discussed results and treatment plan with the patient. He verbalizes agreement and understanding. I spoke with Dr. Richardson of the [facility] Hospitalist service. We discussed the patient's results and findings. The patient will be evaluated by Dr. Richardson for further management. 0126: I reevaluated and updated the patient. 0201: I discussed the patient's case with the ICU attending who will accept the patient to the ICU if needed. Medical Decision Differential diagnoses include: bowel obstruction, pancreatitis, electrolyte imbalance, acute cholecystitis, biliary colic, cardiac ischemia, appendicitis, diverticulitis, hernia, dehydration, bowel rupture, and UTI. There is no leukocytosis or concerning anemia. No coagulopathy. Urinalysis shows dehydration, no evidence for infection. EKG showed a sinus tachycardia, no acute ischemic change. Cardiac enzyme testing 1 did not suggest acute cardiac injury. Chest film did not show pneumonia or free air. Abdominal and pelvis CT showed no acute surgical process, no evidence for diverticulitis or for bowel obstruction. Renal panel testing shows acidosis with a moderate hyperkalemia and acute renal failure. Blood sugar was elevated at over 400. Liver panel testing did not suggest any sign of hepatitis. Lipase is somewhat elevated at 500. The patient presented vomiting and tachycardic. He was having abdominal pain. He was hypertensive as well. He had not taken his regular medications in a few days. The patient was aggressively managed. He received IV saline, he was given 2 L initially. He received IV Phenergan. He received IV Zofran and an additional dose of IV Phenergan for nausea control. He was given IV Pepcid. He received IV Toradol for pain. He eventually received IV insulin, 2 doses of 10 units were given. He did attempt to take his own blood pressure medication but vomited after. He received IV labetalol for blood pressure and pulse control. He received IV Ativan for anxiety and stress. The patient made very little improvement in his symptoms although his blood pressure and pulse were better controlled after being medicated. He was moved to a trauma bay so he could have more intensive care. A repeat EKG was done during his stay showing a decrease in the heart rate, there was some slight ST elevation in 1 of the anterior leads, no evidence for acute AL though. The patient appears to be in diabetic ketoacidosis. This is a new onset diabetes for him. This has led to dehydration, renal failure, hyperkalemia. I think this is responsible for the vomiting and also the abdominal pain. A hospital stay is clearly warranted. I spoke to the patient, I did speak with case management. I talked to the on-call hospitalist and I discussed the case with the inside sales representative on-call as well. Towards the end of the patient's ER stay, he began to make some improvement in his symptoms. He had less nausea and vomiting. He seemed to have less pain and was actually resting. Again, his blood pressure and pulse were better controlled. Medication Reconcilliation Current Medication List: was personally reviewed by me Blood Pressure Screening Patient's blood pressure: Elevated blood pressure Elevated blood pressure will be monitored by hospitalist. Consults Time Called: 24 Consulting Physician: [facility] - [facility], [facility] Returned Call: 0100 Discussed the patient's case. The patient will be evaluated for further management. Impression Primary Impression: Hyperglycemia Additional Impressions: Acidosis Hyperkalemia Dehydration Nausea Vomiting Epigastric abdominal pain Critical Care I have personally spent greater than 45 minutes of critical care time in the direct management of this patient. This includes bedside care, interpretation of diagnostic studies, and testing, discussion with consultants, patient, and family members, and other required patient management activities. This 45 minutes is in excess of all separately billable procedures. Scribe Attestation The scribe's documentation has been prepared under my direction and personally reviewed by me in its entirety. I confirm that the note above accurately reflects all work, treatment, procedures, and medical decision making performed by me. Departure Information Dispostion Being Evaluated By Hospitalist Referrals No Doctor, Assigned (PCP) Patient Instructions My [facility] Problem Qualifiers
[2017-09-27] MEDS ORDERED: POTASSIUM CHLORIDE 20 MEQ TABCR PO STA (14:45)
--- NOTE | 2017-09-27 15:35 | Pharmacy Progress Note ---
Glycemic Control Intl Consult Date of Service Sep 27, 2017. Scope Glycemic Pharmacist consulted by Dr Man on 09/27 for glycemic control and to write orders per [facility] inpatient glycemic control protocol Objective Weight (Kilograms): 122.100 Accuchecks BSG (last 24hrs): Test 09/27/17 00:43 09/27/17 01:00 09/27/17 01:48 09/27/17 05:33 Random Glucose 439 mg/dl (70-99) Bedside Glucose 432 mg/dl (70-99) 420 mg/dl (70-99) 376 mg/dl (70-99) Test 09/27/17 09:52 Random Glucose 416 mg/dl (70-99) Laboratory Data (last 24hrs) Test 09/26/17 20:58 09/27/17 00:43 09/27/17 09:52 09/27/17 12:16 Hemoglobin A1c 12.5 % White Blood Count 7.07 K/uL Red Blood Count 4.96 M/uL Hemoglobin 16.6 g/dL Hematocrit 46.1 % Mean Corpuscular Volume 92.9 fL Mean Corpuscular Hemoglobin 33.5 pg Mean Corpuscular Hemoglobin Concent 36.0 g/dl Platelet Count 178 K/uL Mean Platelet Volume 11.9 fL Neutrophils (%) (Auto) 79.1 % Lymphocytes (%) (Auto) 13.2 % Monocytes (%) (Auto) 6.9 % Eosinophils (%) (Auto) 0.0 % Basophils (%) (Auto) 0.1 % Neutrophils # (Auto) 5.59 K/uL Lymphocytes # (Auto) 0.93 K/uL Monocytes # (Auto) 0.49 K/uL Eosinophils # (Auto) 0.00 K/uL Basophils # (Auto) 0.01 K/uL Anion Gap 25.0 mmol/L 28.0 mmol/L BUN/Creatinine Ratio 5.0 4.9 Blood Urea Nitrogen 9 mg/dl 9 mg/dl Creatinine 1.81 mg/dl 1.93 mg/dl Potassium Level 6.2 mmol/L mmol/L mmol/L Sodium Level 132 mmol/L 133 mmol/L Test 09/27/17 13:21 Potassium Level 3.8 mmol/L HbA1c Test 09/26/17 20:58 Hemoglobin A1c 12.5 % (4.5-5.6) H Recent Pertinent Medications Outpatient Anti-diabetic Regimen: * new onset diabetes The patient is currently receiving: * Basal insulin: Lantus 20 units every 12 hours * Correctional Insulin: Novolog Correction per scale ACHS Goal Range: Low 100 mg/dL - High 150 mg/dL Correction Factor: 30 mg/dL/unit * Prandial insulin: Per carb ratio of 1 unit per 10 grams CHO consumed Risk Factors for Insulin Resistance: * Steroids: * Infection: * Pressors: * IVF: * Recent Surgery * Diet: * Mechanical Ventilation: Assessment & Plan ASSESSMENT: * Patient with new onset diabetes presenting in DKA, continues to be acidotic. Patient originally placed on SC basal bolus regimen before being transitioned to a drip. Patient received 20 units of lantus ~0500 and 9 units of novolog ~ 0800. PLAN FOR INPATIENT GLYCEMIC CONTROL: * Starting IV insulin infusion per DKA (moderate) stress protocol (Started ~1030 ) * Goal Range 150 - 250 mg/dl * In the critical care setting, continuous IV insulin infusion has been shown to be the best method for achieving glycemic targets. * Correctional Insulin with NOVOLOG PCHS while on drip * Goal Range: Low 150 mg/dL - High 250 mg/dL * Correction Factor: --(per drip) mg/dL/unit * Please note that the plan above was derived based on current level of insulin resistance and hospital stress. These recommendations are appropriate for inpatient admission only. Plan of care upon discharge will need to be reassessed to avoid potential outpatient hypo/hyperglycemia. Thank you.
[2017-09-27] MEDS: POTASSIUM CHLR 10 MEQ / WTR 10 MEQ in PREMIXED WATER 100 ML IV SCH ×2 (15:55→17:23)
[2017-09-27] MEDS: LACTATED RINGER'S 1000ML 1,000 ML IV SCH ×2 (15:56→23:33)
[2017-09-27] MEDS ORDERED: POTASSIUM CHLORIDE INJ 20 MEQ in LACTATED RINGER'S 1000ML 1,000 ML IV SCH (17:01)
[2017-09-27 17:03] LABS: CALCIUM 8.9 mg/dl (8.5-10.1); CREATININE 1.95 mg/dl (0.60-1.40); POTASSIUM 3.5 mmol/L (3.5-5.1)
[2017-09-27 17:05] LABS: PHOSPHORUS 1.6 mg/dl (2.5-4.9)
[2017-09-27 20:11] LABS: CKMB 2.5 ng/ml (0.5-3.6)
[2017-09-27 20:12] LABS: CREATININE 1.82 mg/dl (0.60-1.40)
[2017-09-27 20:13] LABS: CALCIUM 9.3 mg/dl (8.5-10.1)
[2017-09-27] MEDS: POTASSIUM CHLORIDE 20 MEQ TABCR PO SCH (20:17)
[2017-09-27 20:21] LABS: PHOSPHORUS 1.4 mg/dl (2.5-4.9)
[2017-09-28] VITALS (8 sets, daily range): BP systolic 111–136; BP diastolic 74–91; PULSE 79–84; TEMP 36.5–37; O2SAT 92–100; BMI 35.5
[2017-09-28 00:58] LABS: CALCIUM 8.9 mg/dl (8.5-10.1); CREATININE 1.66 mg/dl (0.60-1.40)
[2017-09-28 01:32] LABS: PHOSPHORUS 1.2 mg/dl (2.5-4.9); POTASSIUM 3.7 mmol/L (3.5-5.1)
[2017-09-28] MEDS ORDERED: POTASSIUM PHOS 3 MMOL/1 ML INFUSION IV STA ×3 (01:46→19:28)
[2017-09-28] MEDS: CHLORDIAZEPOXIDE 50MG 1ST DOSE PO SCH ×2 (01:50→08:59)
[2017-09-28] MEDS ORDERED: POTASSIUM PHOSPHATE INJ 15 MMOL in SODIUM CHLORIDE 0.9% 250ML 250 ML IV ONE (02:00)
[2017-09-28] MEDS: NITROGLYCERIN 2% OINTMENT 30GM TUBE EXT SCH ×2 (02:09→08:59)
[2017-09-28] MEDS: METOPROLOL TARTRATE 1 MG/ML VIAL IV. SCH ×2 (03:49→08:52)
[2017-09-28 04:34] LABS: EOS % 1.5 %; EOS ABS # 0.05 K/uL (0-0.5); HEMATOCRIT 37.4 % (42-52); HEMOGLOBIN 13.4 g/dL (14.0-18.0); LYMPH % 26.9 %; LYMPH ABS # 0.92 K/uL (1.2-3.4); MEAN CORPUSCULAR HEMOGLOBIN 32.6 pg (25-34); MEAN CORPUSCULAR HGB CONC 35.8 g/dl (32-36); MEAN PLATELET VOLUME 10.9 fL (7.4-10.4); MONO ABS # 0.48 K/uL (0.11-0.59); NEUT % 57.6 %; NEUT ABS # 1.97 K/uL (1.4-6.5); PLATELET COUNT 143 K/uL (130-400); RED CELL DISTRIBUTION WIDTH SD 45.9 fL (36.4-46.3); WHITE BLOOD COUNT 3.42 K/uL (4.8-10.8)
[2017-09-28 04:40] LABS: INR 0.9 (0.9-1.1); PTT PATIENT 26.7 SECONDS (21.0-31.0)
[2017-09-28 05:14] LABS: ALBUMIN 3.4 gm/dl (3.4-5.0); CALCIUM 9.2 mg/dl (8.5-10.1); CREATININE 1.63 mg/dl (0.60-1.40); POTASSIUM 3.6 mmol/L (3.5-5.1)
[2017-09-28 05:33] LABS: PHOSPHORUS 1.7 mg/dl (2.5-4.9); TOTAL PROTEIN 6.9 gm/dl (6.4-8.2)
[2017-09-28] MEDS: LACTATED RINGER'S 1000ML 1,000 ML IV SCH (07:48)
[2017-09-28] MEDS: INSULIN ASPART 100 UNITS/ML 3 ML PEN SC SCH ×4 (08:00→20:38)
[2017-09-28] MEDS ORDERED: POTASSIUM PHOSPHATE INJ 21 MMOL in SODIUM CHLORIDE 0.9% 500ML 500 ML IV ONE ×2 (08:15→19:45)
[2017-09-28] MEDS: ATORVASTATIN 10 MG TAB PO SCH (08:52)
[2017-09-28] MEDS: METOPROLOL SUCC 50MG EXT REL TAB PO SCH (08:52)
[2017-09-28] MEDS: HYOSCYAMINE SULFATE 0.125 MG SL TAB SL PRN (08:52)
[2017-09-28] MEDS: THIAMINE HCL 100 MG TAB PO SCH (08:53)
[2017-09-28] MEDS: POTASSIUM CHLORIDE 20 MEQ TABCR PO SCH ×2 (08:53→20:34)
[2017-09-28] MEDS: ASPIRIN 81 MG ECTAB PO SCH (08:53)
[2017-09-28 08:58] LABS: CALCIUM 9.9 mg/dl (8.5-10.1); CREATININE 1.71 mg/dl (0.60-1.40); PHOSPHORUS 1.6 mg/dl (2.5-4.9); POTASSIUM 3.7 mmol/L (3.5-5.1)
[2017-09-28] MEDS: HEPARIN SOD 5000 UNIT/0.5 ML CARP SQ SCH ×2 (09:00→20:37)
[2017-09-28] MEDS ORDERED: INSULIN GLARGINE SOLOSTAR 100 UNITS/ML 3 ML PEN SC SCH ×2 (09:00→22:00)
--- NOTE | 2017-09-28 09:12 | Pharmacy Progress Note ---
Glycemic Control Progress Note Date of Service Sep 28, 2017. Scope Glycemic Pharmacist consulted for glycemic control to write orders per [facility] inpatient glycemic control protocol. Objective Accuchecks BSG (last 24hrs): Test 09/27/17 09:52 09/27/17 10:01 09/27/17 11:33 09/27/17 12:28 Random Glucose 416 mg/dl (70-99) Bedside Glucose 381 mg/dl (70-99) 385 mg/dl (70-99) 392 mg/dl (70-99) Test 09/27/17 13:39 09/27/17 14:40 09/27/17 15:41 09/27/17 16:07 Bedside Glucose 328 mg/dl (70-99) 279 mg/dl (70-99) 255 mg/dl (70-99) Random Glucose 251 mg/dl (70-99) Test 09/27/17 16:40 09/27/17 17:46 09/27/17 18:42 09/27/17 19:40 Bedside Glucose 208 mg/dl (70-99) 218 mg/dl (70-99) 201 mg/dl (70-99) Random Glucose 195 mg/dl (70-99) Test 09/27/17 19:53 09/27/17 21:43 09/27/17 23:46 09/28/17 00:05 Bedside Glucose 172 mg/dl (70-99) 170 mg/dl (70-99) 168 mg/dl (70-99) Random Glucose 164 mg/dl (70-99) Test 09/28/17 01:50 09/28/17 04:20 09/28/17 05:43 09/28/17 06:56 Bedside Glucose 159 mg/dl (70-99) 136 mg/dl (70-99) 126 mg/dl (70-99) Random Glucose 156 mg/dl (70-99) Test 09/28/17 08:20 HbA1c: Test 09/26/17 20:58 Hemoglobin A1c 12.5 % (4.5-5.6) H Outpatient Anti-Diabetic Meds none - new diagnosis Assessment & Plan ASSESSMENT: * 42 yr old male with new onset diabetes admitted in DKA. Patient was started on IV insulin infusion per protocol yesterday. * Glycemic control has greatly improved over the past 12 hours. Anion gap and bicarbonate improved on am labs but remain outside of normal limits. * Discussed plan of care with Dr. Man. Will change IV fluids to incorporate dextrose to keep insulin infusion on board until evidence of resolution of DKA. Will repeat BMP in 4-6 hours and assess possible transition to SQ basal/bolus regimen at that time. * IV insulin is currently infusing at 3.8 units/hr (avg. infusion rate since initiation ~ 4.7 units/hr) * Patient also received 20 units of basal insulin on 09/27 am * Of note, patient is eating very little therefore infusion rates are reflective of basal needs PLAN FOR INPATIENT GLYCEMIC CONTROL: * Continue IV insulin infusion per protocol until evidence of resolution of DKA * Tighten Goal Range to 100 - 180 mg/dl Once patient meets criteria for transition to SQ basal/bolus insulin, will initiate: * Basal insulin: Lantus 40 units SQ x 1, then 20 units SQ BID (with first dose of 20 units being a minimum of 8 hours after load) * Bolus insulin * NovoLog per scale ACHS or Q6hrs while NPO * Goal Range: Low 110 mg/dL - High 150 mg/dL * Correction Factor: 15 mg/dL/unit * Nutritional / Prandial insulin per carb ratio of 1 unit per 5 grams CHO consumed RECOMMENDATIONS FOR DISCHARGE: * New diagnosis. Combination injectable therapy (basal insulin + mealtime insulin) recommended for A1c > 10%. * Patient is agreeable to basal + fixed dose and sliding scale with meals * Uncertain of exact doses at this time per patient remains on IV infusion * Please note that the plan above was derived based on current level of insulin resistance and hospital stress. These recommendations are appropriate for inpatient admission only. Plan of care upon discharge will need to be reassessed to avoid potential outpatient hypo/hyperglycemia. Thank you.
[2017-09-28] MEDS: POTASSIUM CHLORIDE INJ 20 MEQ in D5W AND LACTATED RINGERS 1,000 ML IV SCH ×2 (09:29→15:18)
[2017-09-28] MEDS: ACETAMINOPHEN 325 MG TAB PO PRN (10:23)
[2017-09-28] MEDS ORDERED: PANTOprazole SOD 40 MG TAB PO STA (11:19)
[2017-09-28] MEDS ORDERED: CALCIUM CARBONATE 500 MG CHEWABLE PO PRN (11:30)
[2017-09-28 13:59] LABS: CREATININE 1.62 mg/dl (0.60-1.40)
[2017-09-28 14:00] LABS: CALCIUM 9.2 mg/dl (8.5-10.1); POTASSIUM 3.8 mmol/L (3.5-5.1)
[2017-09-28] MEDS ORDERED: INSULIN GLARGINE SOLOSTAR 100 UNITS/ML 3 ML PEN SC ONE (14:00)
[2017-09-28] MEDS: CHLORDIAZEPOXIDE 50MG Q8H DOSE PO SCH ×2 (14:34→20:40)
--- NOTE | 2017-09-28 14:58 | Progress Note ---
Subjective Date of Service: Sep 28, 2017. Subjective Pt evaluation today including: conversation w/ patient, conversation w/ family , physical exam, lab review, conversation w/ economics consultant, review of inpatient medication list Pain: c/o headache PO Intake: slowly improving Voiding: no voiding problems patient c/o headache, likely from nitro patch, had RN remove appetite a little better no vomiting, breathing stable, no chest pain reviewed labs and discussed with pharmacy this AM his sugars in the 100's but AG still high, added D5 to fluids sugars trending up despite insulin drip, slowed down fluid rate to 75cc/hr K is 3.8, phos is 1.6 and mag is 2.6 updated patient and , likely here until Tuesday at least certified adapted physical educator visited with patient, he will practice using insulin Problem List Medical Problems: (1) Acidosis Status: Acute (2) Dehydration Status: Acute (3) Epigastric abdominal pain Status: Acute (4) Hyperglycemia Status: Acute (5) Hyperkalemia Status: Acute (6) Nausea Status: Acute (7) Vomiting Status: Acute Review of Systems Constitutional: + weakness, + fatigue, + problem reported (headache) Abdomen: + pain, + problem reported (heartburn, poor appetite) All Other Systems: Reviewed and Negative Medications Current Inpatient Medications Medications (Trade) Dose Ordered Sig/Ike Route Start Time Stop Time Status Last Admin Dose Admin Heparin Sodium (Porcine) (Heparin Sq 5000 Unit/0.5ml) 5,000 unit Q12 SQ 09/27/17 09:00 10/27/17 08:59 09/28/17 09:00 5,000 UNIT Acetaminophen (Tylenol Tab) 650 mg Q4H PRN PO 09/27/17 02:15 10/27/17 02:14 09/28/17 10:23 650 MG Al Hydrox/Mg Hydrox/Simethicone (Maalox Max Susp) 15 ml Q4H PRN PO 09/27/17 02:15 10/27/17 02:14 09/27/17 06:21 15 ML Magnesium Hydroxide (Milk Of Magnesia Susp) 30 ml Q12H PRN PO 09/27/17 02:15 10/27/17 02:14 Aspirin (Ecotrin Tab) 81 mg QAM PO 09/27/17 09:00 10/27/17 08:59 09/28/17 08:53 81 MG Atorvastatin Calcium (Lipitor Tab) 10 mg DAILY PO 09/27/17 09:00 10/27/17 08:59 09/28/17 08:52 10 MG Metoprolol Succinate (Toprol Xl Tab) 50 mg QAM PO 09/27/17 09:00 10/27/17 08:59 09/28/17 08:52 50 MG Ondansetron HCl (Zofran Odt) 8 mg Q6H PRN PO 09/27/17 02:15 10/27/17 02:14 09/27/17 08:17 8 MG Insulin Aspart (novoLOG ASPART) SLIDING SCALE If C... ACHS SC 09/27/17 06:45 10/27/17 06:59 Future Hold 09/27/17 07:52 9 UNITS Glucose (Glucose 40% Gel) 15-30 GRAMS 15 GRAMS... UD PRN PO 09/27/17 02:15 10/27/17 02:14 Glucose (Glucose Chew Tab) 4-8 Tablets 4 Tabl... UD PRN PO 09/27/17 02:15 10/27/17 02:14 Dextrose (Dextrose 50% 50ML Syringe) 25-50ML OF 50% DW IV FOR... UD PRN IV 09/27/17 02:15 10/27/17 02:14 Glucagon (Glucagon Inj) 1 mg UD PRN SQ 09/27/17 02:15 10/27/17 02:14 Prochlorperazine Edisylate 10 mg/ Syringe 10 ml @ 5 mls/min Q6H PRN IV 09/27/17 02:30 10/27/17 02:29 Insulin Aspart (novoLOG ASPART) SLIDING SCALE [facility] 09/27/17 12:00 10/27/17 11:59 09/28/17 11:54 2 UNITS Miscellaneous Information (Consult Glycemic Management Pharmacy) 1 ea UD PRN N/A 09/27/17 08:15 10/27/17 08:14 Insulin Human Regular 250 units/ Sodium Chloride 252.5 ml @ 0 mls/hr Q24H IV 09/27/17 10:30 10/27/17 10:29 09/27/17 10:33 3.1 MLS/HR Thiamine HCl (Vitamin B-1 Tab) 100 mg DAILY PO 09/27/17 13:30 10/27/17 13:29 09/28/17 08:53 100 MG Lorazepam (Ativan Tab) 1 mg Q8 PRN PO 09/27/17 13:00 10/27/17 12:59 Chlordiazepoxide (Librium Cap) 50 mg Q8H PO 09/28/17 14:00 09/29/17 06:01 09/28/17 14:34 50 MG Chlordiazepoxide (Librium Cap) 25 mg Q8H PO 09/29/17 14:00 09/30/17 06:01 Chlordiazepoxide (Librium Cap) 10 mg Q12H PO 09/30/17 18:00 10/01/17 06:01 Potassium Chloride (Klor-Con Tab) 20 meq BID PO 09/27/17 21:00 10/27/17 20:59 09/28/17 08:53 20 MEQ Potassium Chloride 20 meq/ Dextrose/Lactated Ringer's 1,010 ml @ 75 mls/hr [id number] IV 09/28/17 09:00 10/28/17 08:59 09/28/17 09:29 125 MLS/HR Pantoprazole Sodium (Protonix Tab) 40 mg BID PO 09/28/17 21:00 10/28/17 20:59 Calcium Carbonate (Tums Chew Tab) 500 mg Q6 PRN PO 09/28/17 11:30 10/28/17 11:29 09/28/17 13:13 500 MG Objective Vital Signs Date Time Temp Pulse Resp B/P (MAP) Pulse Ox O2 Delivery O2 Flow Rate FiO2 09/28/17 12:00 Room Air 09/28/17 11:20 Room Air 09/28/17 11:00 36.5 79 20 133/82 (99) 97 Room Air 09/28/17 08:52 83 128/83 09/28/17 07:38 37.0 83 20 128/83 (98) 96 Room Air 09/28/17 04:00 Room Air 09/28/17 03:55 36.6 84 20 111/74 (86) 98 Room Air 09/28/17 00:00 Room Air 09/27/17 23:42 36.9 85 20 110/71 (84) 97 Room Air 09/27/17 23:33 93 133/88 09/27/17 20:18 93 133/88 09/27/17 20:00 Room Air 09/27/17 18:48 37.0 91 18 133/88 (103) 97 Room Air 09/27/17 16:00 Room Air 09/27/17 15:58 93 131/87 09/27/17 15:39 36.7 91 19 122/79 (93) 96 Room Air 09/27/17 15:14 37.0 93 18 131/87 (102) 96 Room Air Physical Exam General Appearance: no apparent distress, + obese Eyes: normal inspection, EOMI, sclerae normal Neck: supple, no adenopathy, no JVD, trachea midline Respiratory/Chest: chest non-tender, lungs clear, normal breath sounds, no respiratory distress, no accessory muscle use Cardiovascular: regular rate, rhythm, no edema, no gallop, no JVD, no murmur Abdomen: normal bowel sounds, non tender, soft, no organomegaly Extremities: normal range of motion, non-tender, normal inspection, no pedal edema, no calf tenderness, normal capillary refill, pelvis stable Neurologic/Psychiatric: compensation adjuster II-XII nml as tested, no motor/sensory deficits, alert, normal mood/affect, oriented x 3 Skin: normal color, warm/dry, no rash Laboratory Results Last 24 Hours Test 09/27/17 15:41 09/27/17 16:07 09/27/17 16:40 09/27/17 17:46 Bedside Glucose 255 mg/dl 208 mg/dl 218 mg/dl Venous Blood pH 7.30 Sodium Level 133 mmol/L Potassium Level 3.5 mmol/L Chloride Level 103 mmol/L Carbon Dioxide Level 11 mmol/L Anion Gap 19.0 mmol/L Blood Urea Nitrogen 8 mg/dl Creatinine 1.95 mg/dl Est Creatinine Clear Calc Drug Dose 68.5 ml/min Estimated GFR () 47.8 Estimated GFR (Non- 41.2 BUN/Creatinine Ratio 4.3 Random Glucose 251 mg/dl Calcium Level 8.9 mg/dl Phosphorus Level 1.6 mg/dl Magnesium Level 2.6 mg/dl Test 09/27/17 18:13 09/27/17 18:42 09/27/17 19:40 09/27/17 19:53 Creatine Kinase MB Ratio Bedside Glucose 201 mg/dl 172 mg/dl Venous Blood pH 7.32 Sodium Level 135 mmol/L Potassium Level mmol/L Chloride Level 106 mmol/L Carbon Dioxide Level 14 mmol/L Anion Gap 15.0 mmol/L Blood Urea Nitrogen 8 mg/dl Creatinine 1.82 mg/dl Est Creatinine Clear Calc Drug Dose 73.4 ml/min Estimated GFR () 51.9 Estimated GFR (Non- 44.8 BUN/Creatinine Ratio 4.7 Random Glucose 195 mg/dl Calcium Level 9.3 mg/dl Phosphorus Level 1.4 mg/dl Magnesium Level mg/dl Total Creatine Kinase U/L Creatine Kinase MB 2.5 ng/ml Troponin I < 0.015 ng/ml Test 09/27/17 20:44 09/27/17 21:43 09/27/17 23:46 09/28/17 00:05 Potassium Level mmol/L 3.7 mmol/L Magnesium Level mg/dl 2.2 mg/dl Total Creatine Kinase U/L 167 U/L Bedside Glucose 170 mg/dl 168 mg/dl Sodium Level 138 mmol/L Chloride Level 111 mmol/L Carbon Dioxide Level 12 mmol/L Anion Gap 15.0 mmol/L Blood Urea Nitrogen 9 mg/dl Creatinine 1.66 mg/dl Est Creatinine Clear Calc Drug Dose 80.5 ml/min Estimated GFR () 58.0 Estimated GFR (Non- 50.1 BUN/Creatinine Ratio 5.4 Random Glucose 164 mg/dl Calcium Level 8.9 mg/dl Phosphorus Level 1.2 mg/dl Test 09/28/17 00:36 09/28/17 01:50 09/28/17 04:20 09/28/17 04:21 Venous Blood pH 7.31 7.33 Bedside Glucose 159 mg/dl Prothrombin Time 9.9 SECONDS Prothromb Time International Ratio 0.9 Activated Partial Thromboplast Time 26.7 SECONDS Partial Thromboplastin Ratio 1.0 Sodium Level 137 mmol/L Potassium Level 3.6 mmol/L Chloride Level 108 mmol/L Carbon Dioxide Level 17 mmol/L Anion Gap 12.0 mmol/L Blood Urea Nitrogen 9 mg/dl Creatinine 1.63 mg/dl Est Creatinine Clear Calc Drug Dose 82.0 ml/min Estimated GFR () 59.3 Estimated GFR (Non- 51.2 BUN/Creatinine Ratio 5.3 Random Glucose 156 mg/dl Calcium Level 9.2 mg/dl Phosphorus Level 1.7 mg/dl Magnesium Level 2.3 mg/dl Total Bilirubin 0.5 mg/dl Direct Bilirubin 0.2 mg/dl Aspartate Amino Transf (AST/SGOT) 24 U/L Alanine Aminotransferase (ALT/SGPT) 34 U/L Alkaline Phosphatase 91 U/L Total Protein 6.9 gm/dl Albumin 3.4 gm/dl White Blood Count 3.42 K/uL Red Blood Count 4.11 M/uL Hemoglobin 13.4 g/dL Hematocrit 37.4 % Mean Corpuscular Volume 91.0 fL Mean Corpuscular Hemoglobin 32.6 pg Mean Corpuscular Hemoglobin Concent 35.8 g/dl Platelet Count 143 K/uL Mean Platelet Volume 10.9 fL Neutrophils (%) (Auto) 57.6 % Lymphocytes (%) (Auto) 26.9 % Monocytes (%) (Auto) 14.0 % Eosinophils (%) (Auto) 1.5 % Basophils (%) (Auto) 0.0 % Neutrophils # (Auto) 1.97 K/uL Lymphocytes # (Auto) 0.92 K/uL Monocytes # (Auto) 0.48 K/uL Eosinophils # (Auto) 0.05 K/uL Basophils # (Auto) 0.00 K/uL RDW Standard Deviation 45.9 fL RDW Coefficient of Variation 14.0 % Immature Granulocyte % (Auto) 0.0 % Immature Granulocyte # (Auto) 0.00 K/uL Test 09/28/17 05:43 09/28/17 06:56 09/28/17 08:20 09/28/17 13:31 Bedside Glucose 136 mg/dl 126 mg/dl Venous Blood pH 7.32 Sodium Level 137 mmol/L 136 mmol/L Potassium Level 3.7 mmol/L 3.8 mmol/L Chloride Level 106 mmol/L 106 mmol/L Carbon Dioxide Level 19 mmol/L 18 mmol/L Anion Gap 12.0 mmol/L 12.0 mmol/L Blood Urea Nitrogen 9 mg/dl 8 mg/dl Creatinine 1.71 mg/dl 1.62 mg/dl Est Creatinine Clear Calc Drug Dose 79.2 ml/min 83.6 ml/min Estimated GFR () 56.0 59.8 Estimated GFR (Non- 48.3 51.6 BUN/Creatinine Ratio 5.2 5.1 Random Glucose 192 mg/dl 290 mg/dl Calcium Level 9.9 mg/dl 9.2 mg/dl Phosphorus Level 1.6 mg/dl Magnesium Level 2.4 mg/dl Test 09/28/17 14:06 Bedside Glucose 291 mg/dl Assessment and Plan 42 yo male with new onset DM, presenting with DKA - DKA: sugars in 400's, HCO3 low at 5 with anion gap of 28 at the time of admission anion gap is almost closed at 12 today, will continue the insulin infusion, plan for dose of Lantus to help with transition to Novolog sugars trending up with Dextrose in fluids, decrease rate to 75cc/hr K is 3.8, continue BID supplementation and 20mEq K in fluids since he is still on drip phos low at 1.6, KPhos 21mmol ordered, repeat at 1800 check BMP at 1800, will try to transition to Lantus and Novolog at discretion of pharmacy still requiring a lot of insulin since he was without insulin for some time - Hypertriglyceridemia due to elevated sugars, will repeat once sugars controlled likely tomorrow or Tuesday - RAMIREZ: Cr up to 1.9, likely prerenal azotemia UO is acceptable Cr was 1.6 this AM, up slightly to 1.7 possible that he has some CKD since we do not have prior Cr levels in our system will follow while inpatient and will need repeat labs after discharge - Alcohol abuse: drinks several bottles of vodka a week last drink was 4 days ago, no tremors or signs of withdrawal will place on Librium protocol Ativan PRN - GERD: start on Protonix BID and add Tums PRN - DVT prophylaxis: heparin SC
[2017-09-28] MEDS: INSULIN REGULAR 250 UNITS in SODIUM CHLORIDE 0.9% 250ML 250 ML IV SCH (15:15)
[2017-09-28] MEDS: POTASSIUM CHLORIDE INJ 20 MEQ in LACTATED RINGER'S 1000ML 1,000 ML IV SCH (16:00)
[2017-09-28 19:08] LABS: CALCIUM 9.3 mg/dl (8.5-10.1); CREATININE 1.71 mg/dl (0.60-1.40); POTASSIUM 3.6 mmol/L (3.5-5.1)
[2017-09-28] MEDS: PANTOprazole SOD 40 MG TAB PO SCH (20:34)
[2017-09-29] VITALS (9 sets, daily range): BP systolic 125–167; BP diastolic 83–115; PULSE 79–87; TEMP 36.6–37; O2SAT 97–100; Ht 188 cm; Wt 130.7 kg
[2017-09-29] MEDS: POTASSIUM CHLORIDE INJ 20 MEQ in LACTATED RINGER'S 1000ML 1,000 ML IV SCH (05:00)
[2017-09-29] MEDS: INSULIN REGULAR 250 UNITS in SODIUM CHLORIDE 0.9% 250ML 250 ML IV SCH (05:01)
[2017-09-29 05:56] LABS: INR 0.9 (0.9-1.1); PTT PATIENT 25.9 SECONDS (21.0-31.0)
[2017-09-29 06:03] LABS: ALBUMIN 3.2 gm/dl (3.4-5.0); CALCIUM 9.4 mg/dl (8.5-10.1); CREATININE 1.47 mg/dl (0.60-1.40); POTASSIUM 3.4 mmol/L (3.5-5.1)
[2017-09-29 06:10] LABS: PHOSPHORUS 2.1 mg/dl (2.5-4.9); TOTAL PROTEIN 6.5 gm/dl (6.4-8.2)
[2017-09-29 06:23] LABS: HEMATOCRIT 37.6 % (42-52); HEMOGLOBIN 13.4 g/dL (14.0-18.0); MEAN CELL VOLUME 92.4 fL (80-100); MEAN CORPUSCULAR HEMOGLOBIN 32.9 pg (25-34); MEAN CORPUSCULAR HGB CONC 35.6 g/dl (32-36); MEAN PLATELET VOLUME 10.9 fL (7.4-10.4); PLATELET COUNT 138 K/uL (130-400); RED CELL DISTRIBUTION WIDTH CV 14.1 % (11.5-14.5); RED CELL DISTRIBUTION WIDTH SD 47.6 fL (36.4-46.3); WHITE BLOOD COUNT 2.16 K/uL (4.8-10.8)
[2017-09-29 06:28] LABS: EOS % 2.8 %; EOS ABS # 0.06 K/uL (0-0.5); IG# 0.01 K/uL (0.00-0.02); LYMPH % 49.5 %; LYMPH ABS # 1.07 K/uL (1.2-3.4); MONO % 10.2 %; MONO ABS # 0.22 K/uL (0.11-0.59)
[2017-09-29] MEDS: CHLORDIAZEPOXIDE 50MG Q8H DOSE PO SCH (07:10)
[2017-09-29] MEDS ORDERED: POTASSIUM PHOS 3 MMOL/1 ML INFUSION IV STA (07:48)
[2017-09-29] MEDS ORDERED: INSULIN GLARGINE SOLOSTAR 100 UNITS/ML 3 ML PEN SC ONE (08:00)
[2017-09-29] MEDS ORDERED: POTASSIUM PHOSPHATE INJ 15 MMOL in SODIUM CHLORIDE 0.9% 250ML 250 ML IV ONE (08:15)
[2017-09-29] MEDS: ATORVASTATIN 10 MG TAB PO SCH (08:45)
[2017-09-29] MEDS: THIAMINE HCL 100 MG TAB PO SCH (08:45)
[2017-09-29] MEDS: ASPIRIN 81 MG ECTAB PO SCH (08:45)
[2017-09-29] MEDS: METOPROLOL SUCC 50MG EXT REL TAB PO SCH (08:45)
[2017-09-29] MEDS: PANTOprazole SOD 40 MG TAB PO SCH ×2 (08:46→22:10)
[2017-09-29] MEDS: POTASSIUM CHLORIDE 20 MEQ TABCR PO SCH ×2 (08:46→22:10)
[2017-09-29] MEDS: HEPARIN SOD 5000 UNIT/0.5 ML CARP SQ SCH (08:49)
[2017-09-29] MEDS: INSULIN ASPART 100 UNITS/ML 3 ML PEN SC SCH ×4 (08:50→21:35)
[2017-09-29] MEDS ORDERED: CHLORDIAZEPOXIDE 25MG Q8H DOSE PO SCH (14:00)
--- NOTE | 2017-09-29 14:03 | Pharmacy Progress Note ---
Pharmacy Glycemic Short Note 2 Date of Service Sep 29, 2017. OUTPATIENT ANTIDIABETIC REGIMEN: * NONE ... new diagnosis ASSESSMENT: * Mr Sam Devlin is a 42 y/o M admitted with DKA and new diagnosis of diabetes. He was initially started on an insulin infusion on 09/27/17 and has continued on this with additional doses of basal insulin. Yesterday the patient was given 40 units of Lantus at noon then 20 units in the evening. Dextrose IVFs were started to continue insulin infusion while electrolyte abnormalities were corrected. This ran from 0900 to 1600. The patient's insulin rate maintained above 5 units/hr until overnight when it dipped to 4.5 units/hr. The patient received 60 units of basal yesterday with at least an additional 90 units IV. He also received 7 units of Novolog. * The patient's diet has improved somewhat. Therefore, in order to obtain a more clear picture of true basal needs established a fixed carbohydrate ratio of 1 unit per 5 grams of carbohydrates. Increased basal dose this morning to 30 units as 60 units was easily tolerated yesterday. Spoke with provider who was interested in transitioning patient off of insulin infusion. Nurse told me that patient may not have received full dose of Lantus this morning as his skin was slightly wet where Lantus was given. * It does not appear that patient will be titrated off of drip by reducing rate to zero. Estimated a TDD of around 120 units/day which would correlated to Lantus 30 units and correction factor of 15 carbohydrate ratio of 4. Therefore, scheduled next Lantus dose for dinner (slightly early since patient may not have gotten full dose this morning plus insulin infusion will be stopped suddenly). Utilized tighter Novolog parameters than weight-based stress of 3 and estimates for TDD of 120 units as the patient will have resistance coming off of insulin infusion. Overnight checks added to prevent blood sugars from increasing overnight. PLAN FOR INPATIENT GLYCEMIC CONTROL: * Basal insulin * Lantus 30 units SQ BID * Bolus insulin * NovoLog per scale ACHS or Q6hrs while NPO * Goal Range: Low 110 mg/dL - High 140 mg/dL * Correction Factor: 12 mg/dL/unit * Nutritional / Prandial insulin per carb ratio of 1 unit per 4 grams CHO consumed
--- NOTE | 2017-09-29 16:07 | Progress Note ---
Subjective Date of Service: Sep 29, 2017. Subjective Pt evaluation today including: conversation w/ patient, physical exam, lab review, conversation w/ in home sales consultant, review of inpatient medication list Pain: no pain PO Intake: improved, eating well Voiding: no voiding problems patient feeling much better, sugars controlled, gap closed neutropenic today, likely a drug reaction, will stop Librium reviewed labs, AG is 8, sugars in 100's discussed with pharmacy, will stop drip, orders placed for Lantus and Novolog, sugars will likely go up Problem List Medical Problems: (1) Acidosis Status: Acute (2) Dehydration Status: Acute (3) Epigastric abdominal pain Status: Acute (4) Hyperglycemia Status: Acute (5) Hyperkalemia Status: Acute (6) Nausea Status: Acute (7) Vomiting Status: Acute Review of Systems Constitutional: + weakness All Other Systems: Reviewed and Negative Medications Current Inpatient Medications Medications (Trade) Dose Ordered Sig/Ike Route Start Time Stop Time Status Last Admin Dose Admin Acetaminophen (Tylenol Tab) 650 mg Q4H PRN PO 09/27/17 02:15 10/27/17 02:14 09/28/17 10:23 650 MG Al Hydrox/Mg Hydrox/Simethicone (Maalox Max Susp) 15 ml Q4H PRN PO 09/27/17 02:15 10/27/17 02:14 09/27/17 06:21 15 ML Magnesium Hydroxide (Milk Of Magnesia Susp) 30 ml Q12H PRN PO 09/27/17 02:15 10/27/17 02:14 Aspirin (Ecotrin Tab) 81 mg QAM PO 09/27/17 09:00 10/27/17 08:59 09/29/17 08:45 81 MG Atorvastatin Calcium (Lipitor Tab) 10 mg DAILY PO 09/27/17 09:00 10/27/17 08:59 09/29/17 08:45 10 MG Metoprolol Succinate (Toprol Xl Tab) 50 mg QAM PO 09/27/17 09:00 10/27/17 08:59 09/29/17 08:45 50 MG Ondansetron HCl (Zofran Odt) 8 mg Q6H PRN PO 09/27/17 02:15 10/27/17 02:14 09/27/17 08:17 8 MG Glucose (Glucose 40% Gel) 15-30 GRAMS 15 GRAMS... UD PRN PO 09/27/17 02:15 10/27/17 02:14 Glucose (Glucose Chew Tab) 4-8 Tablets 4 Tabl... UD PRN PO 09/27/17 02:15 10/27/17 02:14 Dextrose (Dextrose 50% 50ML Syringe) 25-50ML OF 50% DW IV FOR... UD PRN IV 09/27/17 02:15 10/27/17 02:14 Glucagon (Glucagon Inj) 1 mg UD PRN SQ 09/27/17 02:15 10/27/17 02:14 Prochlorperazine Edisylate 10 mg/ Syringe 10 ml @ 5 mls/min Q6H PRN IV 09/27/17 02:30 10/27/17 02:29 Miscellaneous Information (Consult Glycemic Management Pharmacy) 1 ea UD PRN N/A 09/27/17 08:15 10/27/17 08:14 Thiamine HCl (Vitamin B-1 Tab) 100 mg DAILY PO 09/27/17 13:30 10/27/17 13:29 09/29/17 08:45 100 MG Lorazepam (Ativan Tab) 1 mg Q8 PRN PO 09/27/17 13:00 10/27/17 12:59 Potassium Chloride (Klor-Con Tab) 20 meq BID PO 09/27/17 21:00 10/27/17 20:59 09/29/17 08:46 20 MEQ Pantoprazole Sodium (Protonix Tab) 40 mg BID PO 09/28/17 21:00 10/28/17 20:59 09/29/17 08:46 40 MG Calcium Carbonate (Tums Chew Tab) 500 mg Q6 PRN PO 09/28/17 11:30 10/28/17 11:29 09/28/17 13:13 500 MG Insulin Aspart (novoLOG ASPART) SLIDING SCALE If C... ACHS SC 09/29/17 12:00 10/29/17 11:59 09/29/17 12:29 10 UNITS Insulin Aspart (novoLOG ASPART) SLIDING SCALE If C... TODAY@0000,0400 [place] 09/30/17 00:00 09/30/17 04:01 Insulin Glargine (Lantus Solostar Pen) 30 units BID SC 09/29/17 17:00 10/29/17 16:59 Objective Vital Signs Date Time Temp Pulse Resp B/P (MAP) Pulse Ox O2 Delivery O2 Flow Rate FiO2 09/29/17 15:20 36.7 80 18 149/97 (114) 100 Room Air 09/29/17 14:23 36.6 84 18 167/115 (132) 99 Room Air 09/29/17 13:13 36.7 79 20 97 09/29/17 12:00 Room Air 09/29/17 11:32 36.7 79 20 153/109 (124) 97 Room Air 09/29/17 08:00 Room Air 09/29/17 07:49 37.0 87 20 147/97 (114) 99 Room Air 09/29/17 04:00 Room Air 09/29/17 03:47 36.6 85 20 142/83 (102) 97 Room Air 09/29/17 00:00 Room Air 09/28/17 23:26 36.9 83 20 136/91 (106) 100 Room Air 09/28/17 20:10 36.9 81 20 124/85 (98) 95 Room Air 09/28/17 20:00 94 Room Air 09/28/17 16:56 Room Air Physical Exam General Appearance: WD/WN, no apparent distress Eyes: normal inspection, EOMI, sclerae normal ENT: normal ENT inspection, hearing grossly normal, pharynx normal Neck: supple, no adenopathy, no JVD, trachea midline Respiratory/Chest: chest non-tender, lungs clear, normal breath sounds, no respiratory distress, no accessory muscle use Cardiovascular: regular rate, rhythm, no edema, no gallop, no JVD, no murmur Abdomen: normal bowel sounds, non tender, soft, no organomegaly Extremities: normal range of motion, non-tender, normal inspection, no pedal edema, no calf tenderness, pelvis stable Neurologic/Psychiatric: bag end sewer II-XII nml as tested, no motor/sensory deficits, alert, normal mood/affect, oriented x 3 Skin: normal color, warm/dry, no rash Laboratory Results Last 24 Hours Test 09/28/17 17:01 09/28/17 18:02 09/28/17 18:17 09/28/17 19:08 Bedside Glucose 252 mg/dl 279 mg/dl 188 mg/dl Sodium Level 136 mmol/L Potassium Level 3.6 mmol/L Chloride Level 108 mmol/L Carbon Dioxide Level 18 mmol/L Anion Gap 10.0 mmol/L Blood Urea Nitrogen 10 mg/dl Creatinine 1.71 mg/dl Est Creatinine Clear Calc Drug Dose 79.2 ml/min Estimated GFR () 56.0 Estimated GFR (Non- 48.3 BUN/Creatinine Ratio 6.0 Random Glucose 270 mg/dl Calcium Level 9.3 mg/dl Phosphorus Level 1.0 mg/dl Magnesium Level 1.9 mg/dl Test 09/28/17 20:01 09/28/17 21:31 09/28/17 22:35 09/28/17 23:34 Bedside Glucose 138 mg/dl 118 mg/dl 114 mg/dl 99 mg/dl Test 09/29/17 00:30 09/29/17 01:32 09/29/17 02:36 09/29/17 03:36 Bedside Glucose 80 mg/dl 103 mg/dl 116 mg/dl 109 mg/dl Test 09/29/17 04:33 09/29/17 05:24 09/29/17 05:39 09/29/17 06:39 Bedside Glucose 148 mg/dl 126 mg/dl 103 mg/dl White Blood Count 2.16 K/uL Red Blood Count 4.07 M/uL Hemoglobin 13.4 g/dL Hematocrit 37.6 % Mean Corpuscular Volume 92.4 fL Mean Corpuscular Hemoglobin 32.9 pg Mean Corpuscular Hemoglobin Concent 35.6 g/dl Platelet Count 138 K/uL Mean Platelet Volume 10.9 fL Neutrophils (%) (Auto) 37.0 % Lymphocytes (%) (Auto) 49.5 % Monocytes (%) (Auto) 10.2 % Eosinophils (%) (Auto) 2.8 % Basophils (%) (Auto) 0.0 % Neutrophils # (Auto) 0.80 K/uL Lymphocytes # (Auto) 1.07 K/uL Monocytes # (Auto) 0.22 K/uL Eosinophils # (Auto) 0.06 K/uL Basophils # (Auto) 0.00 K/uL RDW Standard Deviation 47.6 fL RDW Coefficient of Variation 14.1 % Immature Granulocyte % (Auto) 0.5 % Immature Granulocyte # (Auto) 0.01 K/uL Red Blood Cell Morphology Unremarkable Prothrombin Time 9.4 SECONDS Prothromb Time International Ratio 0.9 Activated Partial Thromboplast Time 25.9 SECONDS Partial Thromboplastin Ratio 1.0 Sodium Level 140 mmol/L Potassium Level 3.4 mmol/L Chloride Level 110 mmol/L Carbon Dioxide Level 22 mmol/L Anion Gap 8.0 mmol/L Blood Urea Nitrogen 9 mg/dl Creatinine 1.47 mg/dl Est Creatinine Clear Calc Drug Dose 92.1 ml/min Estimated GFR () 67.2 Estimated GFR (Non- 58.0 BUN/Creatinine Ratio 6.4 Random Glucose 134 mg/dl Calcium Level 9.4 mg/dl Phosphorus Level 2.1 mg/dl Magnesium Level 1.8 mg/dl Total Bilirubin 0.5 mg/dl Direct Bilirubin 0.1 mg/dl Aspartate Amino Transf (AST/SGOT) 44 U/L Alanine Aminotransferase (ALT/SGPT) 48 U/L Alkaline Phosphatase 90 U/L Total Protein 6.5 gm/dl Albumin 3.2 gm/dl Test 09/29/17 07:33 09/29/17 08:42 09/29/17 09:45 09/29/17 10:40 Bedside Glucose 83 mg/dl 166 mg/dl 132 mg/dl 119 mg/dl Test 09/29/17 11:27 Bedside Glucose 97 mg/dl Assessment and Plan 42 yo male with new onset DM, presenting with DKA - DKA: sugars in 400's, HCO3 low at 5 with anion gap of 28 at the time of admission AG closed, sugars in 100's, electrolytes stable for the most part can check BMP daily change to Lantus 30 BID, Novolog SS, correction of 12 and ratio of 1:4 see how sugars respond to basal and bolus dosing hypophosphatemia: replace today, repeat tomorrow - Hypertriglyceridemia due to elevated sugars, will repeat once sugars controlled will check tomorrow - RAMIREZ: Cr up to 1.9 on admission, likely prerenal azotemia UO is acceptable Cr down to 1.4 today possible that he has some CKD since we do not have prior Cr levels in our system will follow while inpatient and will need repeat labs after discharge - Alcohol abuse: drinks several bottles of vodka a week last drink was 5 days ago, no tremors or signs of withdrawal stop Librium Ativan PRN - Neutropenia: did not have on admission, likely drug induced librium can cause blood dyscrasias, will stop it, follow WBC, place on precautions - GERD: start on Protonix BID and add Tums PRN symptoms resolved today, eating well - DVT prophylaxis: heparin SC
[2017-09-29] MEDS: INSULIN GLARGINE SOLOSTAR 100 UNITS/ML 3 ML PEN SC SCH (17:33)
[2017-09-30] MEDS: INSULIN ASPART 100 UNITS/ML 3 ML PEN SC SCH ×4 (00:05→13:09)
[2017-09-30 04:14] VITALS: BP 128/85; PULSE 80
[2017-09-30 07:43] VITALS: BP 174/97; PULSE 73; TEMP 36.7; O2SAT 99
[2017-09-30 07:57] LABS: PHOSPHORUS 2.9 mg/dl (2.5-4.9)
[2017-09-30] MEDS: ATORVASTATIN 10 MG TAB PO SCH (08:35)
[2017-09-30] MEDS: PANTOprazole SOD 40 MG TAB PO SCH (08:35)
[2017-09-30] MEDS: THIAMINE HCL 100 MG TAB PO SCH (08:35)
[2017-09-30] MEDS: ASPIRIN 81 MG ECTAB PO SCH (08:35)
[2017-09-30] MEDS: POTASSIUM CHLORIDE 20 MEQ TABCR PO SCH (08:35)
[2017-09-30] MEDS: METOPROLOL SUCC 50MG EXT REL TAB PO SCH (08:36)
[2017-09-30] MEDS: INSULIN GLARGINE SOLOSTAR 100 UNITS/ML 3 ML PEN SC SCH (08:39)
--- NOTE | 2017-09-30 08:59 | Pharmacy Progress Note ---
Pharmacy Glycemic Short Note 2 Date of Service Sep 30, 2017. OUTPATIENT ANTIDIABETIC REGIMEN: * NONE ... new diagnosis ASSESSMENT: * Mr Sam Devlin is a 42 y/o M admitted with DKA and new diagnosis of diabetes. He was initially started on an insulin infusion on 09/27/17 and has continued on this with additional doses of basal insulin. On 09/28/17, the patient was given 40 units of Lantus at noon then 20 units in the evening. Dextrose IVFs were started to continue insulin infusion while electrolyte abnormalities were corrected. This ran from 0900 to 1600. * Yesterday, I spoke with provider who was interested in transitioning patient off of insulin infusion. Nurse told me that patient may not have received full dose of Lantus this morning as his skin was slightly wet where Lantus was given. It does not appear that patient will be titrated off of drip by reducing rate to zero. Estimated a TDD of around 120 units/day which would correlated to Lantus 30 units and correction factor of 15 carbohydrate ratio of 4. Therefore, scheduled next Lantus dose for dinner (slightly early since patient may not have gotten full dose this morning plus insulin infusion will be stopped suddenly). * Once the insulin infusion was stopped, the patient's blood sugars were 97-196- [phone]. Fasting this morning was 234 mg/dL. This was excellent for the patient. Yesterday, he received 95 units of subcutaneous insulin (60 units of basal) plus at least 48 units of IV insulin. The patient was still under his estimated TDD of 120 units of subcutaneous insulin. Overnight, the patient received an additional 14 of Novolog. Did not add this to the morning dose of Lantus (to make morning dose of 45 units) since patient may not have received full dose of Lantus yesterday morning. * Tightened Novolog slightly since the patient did trend upwards and he will have significant resistance after titration off of an insulin infusion. PLAN FOR INPATIENT GLYCEMIC CONTROL: * Basal insulin * Lantus 30 units SQ BID * Bolus insulin * NovoLog per scale ACHS or Q6hrs while NPO * Goal Range: Low 110 mg/dL - High 140 mg/dL * Correction Factor: 10 mg/dL/unit * Nutritional / Prandial insulin per carb ratio of 1 unit per 3 grams CHO consumed RECOMMENDATIONS FOR OUTPATIENT THERAPY * Basaglar 35 units SQ twice daily * Humalog with meals -carbohydrate ratio of 1 unit per 4 grams of carbohydrates consumed PLUS correction factor of 15 mg/dL/unit (give in addition to Humalog for carbohydrates consumed) * blood sugar 110-140 mg/dL - no extra Humalog * blood sugar 141-155mg/dL - 1 unit of Humalog * blood sugar 156-170 mg/dl - 2 units of Humalog * blood sugar 171- 185 mg/dL - 3 units of Humalog * blood sugar 186- 200 mg/dL - 4 units of Humalog * blood sugar 201- 215 mg/dL - 5 units of Humalog * blood sugar 216-230 mg/dL - 6 units of Humalog * blood sugar 231-245 mg/dL - 7 units of Humalog * blood sugar 246-260 mg/dL - 8 units of Humalog * blood sugar 261-275 mg/dL - 9 units of Humalog * blood sugar 276 and above - 10 units of Humalog
[2017-09-30 10:03] LABS: EOS % 1.5 %; EOS ABS # 0.03 K/uL (0-0.5); HEMATOCRIT 35.5 % (42-52); HEMOGLOBIN 12.7 g/dL (14.0-18.0); IG# 0.01 K/uL (0.00-0.02); LYMPH ABS # 0.73 K/uL (1.2-3.4); MEAN CELL VOLUME 91.3 fL (80-100); MEAN CORPUSCULAR HEMOGLOBIN 32.6 pg (25-34); MEAN CORPUSCULAR HGB CONC 35.8 g/dl (32-36); MEAN PLATELET VOLUME 10.7 fL (7.4-10.4); MONO % 10.3 %; MONO ABS # 0.21 K/uL (0.11-0.59); NEUT % 51.7 %; NEUT ABS # 1.05 K/uL (1.4-6.5); PLATELET COUNT 137 K/uL (130-400); RED CELL DISTRIBUTION WIDTH SD 45.6 fL (36.4-46.3); WHITE BLOOD COUNT 2.03 K/uL (4.8-10.8)
[2017-09-30 10:23] LABS: CALCIUM 9.6 mg/dl (8.5-10.1); CREATININE 1.31 mg/dl (0.60-1.40); POTASSIUM 3.2 mmol/L (3.5-5.1)
[2017-09-30 11:23] VITALS: BP 151/100; PULSE 67; TEMP 36.7; O2SAT 93
[2017-09-30] MEDS ORDERED: INSULIN GLARGINE SOLOSTAR 100 UNITS/ML 3 ML PEN SC ONE (13:00)
[2017-09-30] MEDS ORDERED: LSN5 PO (14:37)
[2017-09-30] MEDS ORDERED: INSU100I23 SC (14:37)
[2017-09-30] MEDS ORDERED: INSU100I2 SC (14:37)
--- NOTE | 2017-09-30 14:49 | Discharge Instructions ---
Discharge Instructions Date of Service Sep 30, 2017. Admission Reason for Admission: Diabetic ketoacidosis Discharge Discharge Diagnosis / Problem: Diabetic ketoacidosis, acute kidney injury, neutropenia Discharge Goals Goal(s): Improve disease control, Diagnostic testing (check blood work) Activity Recommendations Activity Limitations: resume your previous activity . Instructions / Follow-Up Instructions / Follow-Up Medications - BASAGLAR: long acting insulin, take this twice a day, 35 units, dose may change based off of glucose control - HUMALOG: see below for sliding scale, you will use with meals - LISINOPRIL: 5mg daily, this is a blood pressure medication but it is also used for kidney protection in diabetics Diabetes with ketoacidosis you likely have type 1 but endocrinology will help determine that on follow up your ketoacidosis has been resolved for a few days sugars are reasonably controlled, will improve more with time and over time you will need less insulin Basaglar (long acting insulin) will be 35 units morning and evening Humalog will be based on a sliding scale as well as what you are going to eat prior to eating, check your sugar and refer to the sliding scale next, calculate how many carbohydrates you will be eating you will give yourself one unit for every 4 carbs (for example, if you are eating 60 carbs, that would be 15 units of Humalog) in addition to the meal coverage, give additional insulin based on sliding scale, will provide example below * Humalog with meals -carbohydrate ratio of 1 unit per 4 grams of carbohydrates consumed PLUS correction factor of 15 mg/dL/unit (give in addition to Humalog for carbohydrates consumed) * blood sugar 110-140 mg/dL - no extra Humalog * blood sugar 141-155mg/dL - 1 unit of Humalog * blood sugar 156-170 mg/dl - 2 units of Humalog * blood sugar 171- 185 mg/dL - 3 units of Humalog * blood sugar 186- 200 mg/dL - 4 units of Humalog * blood sugar 201- 215 mg/dL - 5 units of Humalog * blood sugar 216-230 mg/dL - 6 units of Humalog * blood sugar 231-245 mg/dL - 7 units of Humalog * blood sugar 246-260 mg/dL - 8 units of Humalog * blood sugar 261-275 mg/dL - 9 units of Humalog * blood sugar 276 and above - 10 units of Humalog so, you check sugar and it is 215, according to sliding scale you would give yourself 5 units and you are eating 60 carbs which as we determined is 15 units you would give yourself 20 units total (15 + 5) prior to eating Please check sugars prior to each meal and at bedtime, do this for the next two weeks so that you can provide readings to endocrinology Acute kidney injury: resolved, this was due to dehydration and DKA as we discussed, you may have a degree of chronic kidney disease but that will be determined based on routine follow up lab work over next few months Neutropenia: likely medication induced since you presented with a normal white blood cell count please get a CBC with Dr. Vanegas when you follow up with him I will send Dr. Vanegas a discharge summary with this information FOLLOW UP "Please, follow up at [facility] Family Medicine Office with Dr. Graham Vanegas on TuesdayOctober 05 at 10:00 am (arrive at 9:[address] Vanegas will be your new primary care provider. *This office is located at [address] [place] [address] in [place]. If you have any questions, call the office at [phone]. Please, follow up at [facility] Endocrinology Office - they will call you with the appointment details. *This office is located in [facility] next to this hospital. If you have any questions, call the office at [phone]." Current Hospital Diet Patient's current hospital diet: Diabetes Type 2 Diet Discharge Diet Recommended Diet: Diabetes Type 1 Diet Pending Studies Studies pending at discharge: no Laboratory Results Hemoglobin A1c Test 09/26/17 20:58 Range/Units Estimated Average Glucose 312 mg/dl Hemoglobin A1c 12.5 H 4.5-5.6 % Lipid Panel Test 09/27/17 09:52 09/30/17 06:59 Range/Units Triglycerides Level 1228 H 327 H 0-150 mg/dl Cholesterol Level 324 H 0-200 mg/dl HDL Cholesterol 39 mg/dl Cholesterol/HDL Ratio 8.3 LDL Cholesterol, Calculated mg/dl Medical Emergencies . Who to Call and When: Medical Emergencies: If at any time you feel your situation is an emergency, please call 911 immediately. . Non-Emergent Contact Non-Emergency issues call your: Primary Care Provider Call Non-Emergent contact if: you have any medication questions . . "Provider Documentation" section prepared by Horacio Marlow . [place] Drug Monitoring Program Search Results: no issues identified
[2017-09-30 15:37] VITALS: BP 151/100; PULSE 67; TEMP 36.7; O2SAT 93
[2017-09-30] MEDS ORDERED: CHLORDIAZEPOXIDE 10MG Q12H DOSE PO SCH (18:00)
[2017-09-30] MEDS ORDERED: INSULIN GLARGINE SOLOSTAR 100 UNITS/ML 3 ML PEN SC SCH (21:00)
--- NOTE | 2017-10-01 15:32 | Discharge Summary ---
Discharge Summary Date of Service Sep 30, 2017. Discharge Summary Admission Date: Sep 27, 2017 at 02:20 Discharge Date: Sep 30, 2017 Discharge Disposition: Home Principal Diagnosis: Diabetic ketoacidosis Problems/Secondary Diagnoses: DM type I, presumed Obesity Hypertension Hypertriglyceridemia RAMIREZ vs CKD stage II/III drug induced neutropenia Immunizations: Have You Had Influenza Vaccine: Unknown History of Tetanus Vaccine?: Unknown History of Pneumococcal: Unknown History of Hepatitis B Vaccine: Unknown Procedures: none Consultations: Pharmacy staff educator Medication Reconciliation New Medications: Insulin Glargine (Basaglar Kwikpen) 100 Unit/Ml Inj 35 UNITS SC BID for 30 Days, #1 BOX 3 Refills Insulin Lispro (Human) (Humalog Kwikpen) 100 Unit/Ml Inj 1 DOSE SC TIDM for 30 Days, #1 BOX 3 Refills Lisinopril (Lisinopril) 5 Mg Tab 5 MG PO DAILY for 30 Days, #30 TABS 3 Refills Continued Medications: Atorvastatin (Lipitor) 10 Mg Tab 10 MG PO DAILY, TAB Metoprolol Succinate (Metoprolol Succinate ER) 50 Mg Tabcr 50 MG PO DAILY Discontinued Medications: Ibuprofen-Diphenhydramine Hcl (Advil Pm) 1 Cap Cap 1 CAP PO UD PRN for Sleep Discharge Exam Patient feeling much better, eating well, energy back to normal, ambulating independently. Long discussion regarding home insulin regimen after I discussed a plan with pharmacy. Patient felt comfortable calculating his carbohydrates, would be able to cover meals with insulin. Gave detailed instructions for sliding scale and carb ratio. Patient knew to follow up with Dr. Vanegas, (new PCP) and then endocrinology Review of Systems: Constitutional: No fever, No chills, No sweats, No weight loss, No weakness , No fatigue, No problem reported Eyes: No worsening of vision, No eye pain, No redness, No discharge, No diplopia, No problem reported ENT: No hearing loss, No unusual epistaxis, No nasal symptoms, No sore throat, No tinnitus, No dental problems, No trouble swallowing, No problem reported Respiratory: No cough, No sputum, No wheezing, No shortness of breath, No dyspnea on exertion, No dyspnea at rest, No hemoptysis, No problem reported Cardiovascular: No chest pain, No orthopnea, No PND, No edema, No claudication, No palpitations, No problem reported Abdomen: No pain, No nausea, No vomiting, No diarrhea, No constipation, No GI bleeding, No problem reported Musculoskeletal: No joint pain, No muscle pain, No swelling, No calf pain, No problem reported Genitourinary - Male: No hematuria, No dysuria, No urinary frequency, No urinary urgency Neurologic: No memory loss, No paralysis, No weakness, No numbness/tingling , No vertigo, No balance problems, No problem reported Psychiatric: No depression symptoms, No anhedonism, No anxiety, No insomnia , No substance abuse, No problem reported Endocrine: No fatigue, No excessive thirst, No excessive urination, No problem reported Hematologic / Lymphatic: No abnormal bleeding/bruising, No clotting problems , No swollen lymph nodes, No night sweats, No problem reported Integumentary: No rash, No itch, No new/changing skin lesions, No color change, No bleeding, No problem reported Physical Exam: General Appearance: no apparent distress, + obese Eyes: normal inspection, EOMI, sclerae normal ENT: normal ENT inspection, hearing grossly normal, pharynx normal Neck: supple, no adenopathy, no JVD, trachea midline Respiratory/Chest: chest non-tender, lungs clear, normal breath sounds, no respiratory distress, no accessory muscle use Cardiovascular: regular rate, rhythm, no edema, no gallop, no JVD, no murmur , normal peripheral pulses Abdomen / GI: normal bowel sounds, non tender, soft, no organomegaly Extremities: normal inspection, no calf tenderness, normal capillary refill , no pedal edema, normal range of motion, pelvis stable 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, no motor/sensory deficits , alert, normal mood/affect, normal reflexes, oriented x 3 Skin: normal color, warm/dry, no rash Hospital Course 42 yo male with new onset DM, presenting with DKA - DKA: sugars in 400's, HCO3 low at 5 with anion gap of 28 at the time of admission AG closed, sugars in 100's, electrolytes stable for several days transitioned off of insulin drip on 09/29, started on Lantus and Novolog plan for discharge is Basaglar 35 units BID, Humalog pen sliding scale ( correction of 15) and carb ratio of 1 unit for 4 carbs educated on signs of hypoglycemia and hyperglycemia will check sugars 4 times a day for next two weeks and will discuss with PCP - Hypertriglyceridemia due to elevated sugars can repeat as outpatient once sugars controlled - RAMIREZ: Cr up to 1.9 on admission, likely prerenal azotemia UO is acceptable Cr down to 1.3 on day of discharge possible that he has some CKD since we do not have prior Cr levels in our system repeat BMP as outpatient GFR ranging from 50-77 - Alcohol abuse: drinks several bottles of vodka a week last drink was 6 days ago, no tremors or signs of withdrawal stopped Librium never needed Ativan - Drug induced Neutropenia: did not have on admission, likely drug induced librium can cause blood dyscrasias, will stop it, follow WBC, place on precautions WBC trending up, no longer neutropenic should have CBC next week with Dr. Vanegas - GERD: start on Protonix BID and add Tums PRN symptoms resolved today, eating well can try Protonix if he has symptoms as outpatient - DVT prophylaxis: heparin SC Total Time Spent: Greater than 30 minutes This includes examination of the patient, discharge planning, medication reconciliation, and communication with other providers. Discharge Instructions Please refer to the electronic Patient Visit Report (Discharge Instructions) for additional information. Follow-Up Dr. Vanegas on 10/05 Endocrinology in next several weeks Additional Copies To Graham Vanegas D.O.; Reid Curiel M.D.
== END 2017-09-30 16:20 | disposition home or self-care (01) | DRG 637 ==
LOC: C.EDC 20:09 → UNDOADMIN 09-27 02:20 → C.MSICU 09-27 02:20 → ENRESERV 09-27 02:27 → C.2T 09-27 14:58 → C.MSICU 09-27 14:58 → ENRESERV 09-29 12:06 → C.MED 09-29 14:15
PROVIDERS: ADMIT Hospitalist; ATTEND Internal Medicine
DX: E10.10 Type 1 diabetes mellitus with ketoacidosis without coma (principal); G93.41 Metabolic encephalopathy; N17.9 Acute kidney failure, unspecified; E10.65 Type 1 diabetes mellitus with hyperglycemia; I12.9 Hypertensive chronic kidney disease with stage 1 through stage 4 chronic kidney disease, or unspecified chronic kidney disease; E87.5 Hyperkalemia; E86.0 Dehydration; E78.5 Hyperlipidemia, unspecified; E78.1 Pure hyperglyceridemia; N18.2 Chronic kidney disease, stage 2 (mild); F10.10 Alcohol abuse, uncomplicated; R79.89 Other specified abnormal findings of blood chemistry; E66.9 Obesity, unspecified; D70.2 Other drug-induced agranulocytosis; Z83.3 Family history of diabetes mellitus

== ENCOUNTER → 2017-10-06 | Outpatient (CLI) | payer OTHER ==
[~2017-10-06] MED LIST: ATOR10TA82 PO; INSU100I2 SC; INSU100I23 SC; LSN5 PO; TPRSR/50 PO
[2017-10-06 13:01] LABS: ALBUMIN 3.8 gm/dl (3.4-5.0); ALT/SGPT 82 U/L (12-78); BLOOD UREA NITROGEN 12 mg/dl (7-18); CALCIUM 8.7 mg/dl (8.5-10.1); CARBON DIOXIDE 27 mmol/L (21-32); CREATININE 1.26 mg/dl (0.60-1.40); GLUCOSE 95 mg/dl (70-99); POTASSIUM 3.2 mmol/L (3.5-5.1); SODIUM 139 mmol/L (136-145); TOTAL PROTEIN 7.3 gm/dl (6.4-8.2)
[2017-10-06 13:10] LABS: ALKALINE PHOSPHATASE 91 U/L (45-117); AST/SGOT 49 U/L (15-37)
== END | disposition home or self-care (01) ==
LOC: C.LAB1850 11:07
PROVIDERS: ATTEND Nurse Practitioner Adult Health
DX: E11.9 Type 2 diabetes mellitus without complications (principal); I10 Essential (primary) hypertension; E78.00 Pure hypercholesterolemia, unspecified; E66.9 Obesity, unspecified